=== PATIENT | male | born 1925 | race Caucasian/White ===

== ENCOUNTER 2016-06-05 14:19 | Inpatient (IN) ==
[2016-06-05] MEDS ORDERED: 0.9 % Sodium Chloride 1,000 ML IVC ONE ×2 (16:25→17:38)
--- NOTE | 2016-06-05 16:29 | Emergency Department Note ---
Addendum entered and electronically signed by Jacob Horton DO 06/05/16 18:25: EKG 06/05/2016 at 17:18. Normal sinus rhythm. Rate 84. NH interval 195. QRS 86. QTC 417. Normal axis. Some of the possible right lateral branch block. No acute ST elevation or depression. Original Note: Disposition Clinical Impression: Cholecystitis, Elevated LFTs, Ascending cholangitis Pancreatitis Qualifiers: Chronicity: acute Pancreatitis type: unspecified pancreatitis type Acute pancreatitis complication: unspecified Qualified Code(s): K85.90 - Acute pancreatitis without necrosis or infection, unspecified Disposition: Admitted As Inpatient Time of Disposition: 17:59 General Adult HPI - General Chief complaint: ED Recheck/Abnormal Lab/Rx Stated complaint: sent from CT Time Seen by Provider: 06/05/16 16:15 Source: patient Mode of arrival: ambulatory Limitations: no limitations Nursing Notes Reviewed: Yes Vital Signs Reviewed: Yes - History of Present Illness HPI Narrative: Patient is an 89-year-old male with past medical history of BPH, hypothyroidism , hypertension, CKD, osteoporosis. He presents today due to a referral from CT. Patient has been having epigastric and right upper quadrant burning for the past week. He states that it is intermittent day to day. Some days, it is associated with nausea and vomiting with food, some days it is not. Yesterday, he woke up with severe pain in the right upper quadrant and had nausea and vomiting with all meals. Today, he denies any pain but does admit to one episode of vomiting with food. He does not know of any fevers at home, denies any chest pain, shortness of breath. Patient had a CT scan today of the abdomen and pelvis that showed acute versus chronic cholecystitis, duodenitis, pancreatitis. He was sent here for further evaluation. Patient is not on any blood thinners. Currently takes aspirin daily. Pain Scale: 0 - Related Data Home Medications Medication Instructions Recorded Confirmed Amlodipine 2.5 mg PO DAILY 08/25/15 08/25/15 Enalapril Maleate [Vasotec] 40 mg PO DAILY 08/25/15 08/25/15 Levothyroxine [Synthroid] 150 mcg PO DAILY 08/25/15 08/25/15 Tamsulosin [Flomax] 0.4 mg PO DAILY 06/09/16 06/09/16 Previous Rx's Medication Instructions Recorded Aspirin 81 mg PO DAILY tab.chew 08/26/15 Melatonin 20 mg PO HS #60 tablet.er 08/26/15 Allergies Allergy/AdvReac Type Severity Reaction Status Date / Time No Known Allergies Allergy Verified 05/22/16 13:41 Constitutional: Denies: fever Eyes: Denies: eye pain ENT ED: Denies: ear pain Cardiovascular: Denies: chest pain, palpitations Respiratory: Denies: cough, dyspnea, wheezes, hemoptysis, stridor Gastrointestinal: Reports: abdominal pain, nausea, vomiting. Denies: diarrhea, constipation Genitourinary: Denies: urgency, dysuria, frequency Musculoskeletal: Denies: back pain, neck pain Integumentary: Denies: rash Neurological: Denies: headache Psychiatric: Denies: anxiety Past Medical History - Past Medical History Attestation: Yes The following information was validated with the patient. Medical history: Reports: arthritis, hypertension, osteoporosis, renal disease, thyroid disease, other Surgical history: Reports: other Psychiatric history: Reports: no psych history - Social History Smoking Status: Former smoker Smokeless Tobacco Status: No Alcohol use: Reports: none Drug use: Reports: none Physical Exam - General Limitations: no limitations General appearance: alert - Head Head exam: atraumatic, normocephalic, normal inspection - Eye Eye exam: Present: normal appearance, PERRL, EOMI - ENT ENT exam: normal exam, normal oropharynx, mucous membranes moist - Neck Neck exam: Present: normal inspection, full ROM, trachea midline - Chest Chest inspection: Present: normal inspection, symmetric chest wall rise - Respiratory Respiratory exam: Present: normal lung sounds bilaterally - Cardiovascular Cardiovascular exam: Present: regular rate, normal rhythm, normal heart sounds - Abdominal Exam Abdominal exam: Present: soft, tenderness (Right upper quadrant and epigastric region, moderate with palpation). Absent: guarding, rebound, rigidity - Extremities Exam Extremities exam: Present: normal inspection, full ROM. Absent: tenderness, pedal edema - Neurological Exam Neurological exam: Present: alert, oriented X3 - Psychiatric Psychiatric exam: Present: normal affect, normal mood - Skin Skin exam: Present: warm, dry, intact, normal color Course Course Narrative: Patient is febrile at 101. He is also mildly hypertensive. Otherwise, the rest of his vitals are within normal limits. Physical exam shows right upper quadrant and epigastric tenderness that is moderate in intensity. No guarding, rebound, rigidity on exam. CT scan from today shows significant gallbladder wall thickening with wall calcifications and adjacent fat induration which may represent acute versus chronic cholecystitis with moderate intrahepatic and mild extrahepatic biliary dilatation. There is also predominantly second third portion duodenal inflammation which may represent peptic ulcer disease without perforation or abscess. There is also mild pancreatic head inflammatory changes which may represent secondary pancreatitis. No pseudocyst or necrosis. Mild right pleural effusion with patchy lung base scarring with possible acute inflammatory infectious process. We will give Tylenol, obtain sepsis workup, abdominal labs, and then contact surgery for further care. 18:00 patient has elevated LFTs, elevated total bilirubin, elevated lipase greater than 1200. Current concern for cholecystitis, pancreatitis, ascending cholangitis. Patient was started on Zosyn, given Tylenol. Surgery was called, spoke with Dr. Tuttle, he requested that the patient be put on bowel rest for pancreatitis to calm down and then he will consider surgery. Discussed this with the hospitalist, accepted for admission. Vital Signs Temperature 101.0 F H 06/05/16 14:36 Pulse Rate 91 06/05/16 14:36 Respiratory Rate 16 06/05/16 14:36 Blood Pressure 150/79 06/05/16 14:36 O2 Sat by Pulse Oximetry 96 06/05/16 14:36 Temperature 101.0 F H 06/05/16 16:45 Pulse Rate 77 06/05/16 18:19 Respiratory Rate 18 06/05/16 18:19 Blood Pressure 116/67 06/05/16 18:19 O2 Sat by Pulse Oximetry 96 06/05/16 18:19 Oxygen Delivery Oxygen Delivery Room Air Medical Decision Making - [facility] Narrative Medical decision making narrative: Patient is febrile at 101. He is also mildly hypertensive. Otherwise, the rest of his vitals are within normal limits. Physical exam shows right upper quadrant and epigastric tenderness that is moderate in intensity. No guarding, rebound, rigidity on exam. CT scan from today shows significant gallbladder wall thickening with wall calcifications and adjacent fat induration which may represent acute versus chronic cholecystitis with moderate intrahepatic and mild extrahepatic biliary dilatation. There is also predominantly second third portion duodenal inflammation which may represent peptic ulcer disease without perforation or abscess. There is also mild pancreatic head inflammatory changes which may represent secondary pancreatitis. No pseudocyst or necrosis. Mild right pleural effusion with patchy lung base scarring with possible acute inflammatory infectious process. We will give Tylenol, obtain sepsis workup, abdominal labs, and then contact surgery for further care. 18:00 patient has elevated LFTs, elevated total bilirubin, elevated lipase greater than 1200. Current concern for cholecystitis, pancreatitis, ascending cholangitis. Patient was started on Zosyn, given Tylenol. Surgery was called, spoke with Dr. Tuttle, he requested that the patient be put on bowel rest for pancreatitis to calm down and then he will consider surgery. Discussed this with the hospitalist, accepted for admission. - Medical Records Medical records reviewed: Yes I reviewed the patient's medical records. - Lab Data Lab results reviewed: Yes I reviewed the patient's lab results. Result diagrams: 06/05/16 16:49 06/05/16 16:49 Lab Results 06/05/16 06/05/16 06/05/16 Range/Units 16:49 16:49 16:49 WBC 15.7 H (4.3-11.1) K/mcL RBC 3.43 L (4.19-5.50) M/mcL Hgb 10.9 L (12.9-16.9) g/dL Hct 32.0 L (37.5-50.1) % MCV 93.3 (83.0-100.0) fL MCH 31.8 (28.0-33.3) pg MCHC 34.1 (31.6-35.5) g/dL RDW 12.4 (11.5-14.5) % Plt Count 417 H (140-400) K/mcL MPV 9.2 L (9.4-12.4) fL Immature Gran % 0.7 (0-4) % Seg Neutrophils % 74.3 % Lymphocytes % 21.3 % Monocytes % 3.6 % Eosinophils % 0.0 % Basophils % 0.1 % Neutrophils # 11.7 H (1.6-8.9) K/mcL Lymphocytes # 3.3 (0.6-4.6) K/mcL Monocytes # 0.6 (0.0-1.3) K/mcL Eosinophils # 0.0 (0.0-0.6) K/mcL Basophils # 0.0 (0.0-0.2) K/mcL PT 17.6 H (9.4-12.1) Seconds INR 1.6 APTT 23.9 L (26.0-36.0) Seconds Sodium 134 L (136-145) mEq/L Potassium 4.5 (3.5-4.5) mEq/L Chloride 103 (98-109) mEq/L Carbon Dioxide 22 (19-29) mEq/L BUN 22 (8-26) mg/dL Creatinine 1.17 (0.72-1.25) mg/dL Est GFR ( Amer) > 60 (> 60) Est GFR (Non-Af Amer) 59 L (> 60) BUN/Creatinine Ratio 19 (6-26) Glucose 200 H (70-99) mg/dL Calculated Osmolality 287 (280-300) Lactic Acid (0.5-2.2) mmol/L Calcium 8.2 L (8.6-10.8) mg/dL Phosphorus 2.7 (2.3-4.7) mg/dL Magnesium 2.0 (1.6-2.6) mg/dL Total Bilirubin 3.1 H (0.2-1.2) mg/dL Direct Bilirubin 2.4 H (0.0-0.5) mg/dL Indirect Bilirubin 0.7 (0.0-1.2) mg/dL AST 464 H (5-34) Units/L ALT 458 H (0-55) Units/L Alkaline Phosphatase 344 H (38-126) Units/L Troponin I (0-0.03) ng/mL Serum Total Protein 6.7 (6.0-8.3) g/dL Albumin 2.8 L (3.5-5.0) g/dL Globulin 3.9 H (2.4-3.5) g/dL Albumin/Globulin Ratio 0.7 L (1.1-2.2) Lipase > 1200 H (8-78) Units/L Blood Type Antibody Screen 06/05/16 06/05/16 06/05/16 Range/Units 16:49 16:49 16:49 WBC (4.3-11.1) K/mcL RBC (4.19-5.50) M/mcL Hgb (12.9-16.9) g/dL Hct (37.5-50.1) % MCV (83.0-100.0) fL MCH (28.0-33.3) pg MCHC (31.6-35.5) g/dL RDW (11.5-14.5) % Plt Count (140-400) K/mcL MPV (9.4-12.4) fL Immature Gran % (0-4) % Seg Neutrophils % % Lymphocytes % % Monocytes % % Eosinophils % % Basophils % % Neutrophils # (1.6-8.9) K/mcL Lymphocytes # (0.6-4.6) K/mcL Monocytes # (0.0-1.3) K/mcL Eosinophils # (0.0-0.6) K/mcL Basophils # (0.0-0.2) K/mcL PT (9.4-12.1) Seconds INR APTT (26.0-36.0) Seconds Sodium (136-145) mEq/L Potassium (3.5-4.5) mEq/L Chloride (98-109) mEq/L Carbon Dioxide (19-29) mEq/L BUN (8-26) mg/dL Creatinine (0.72-1.25) mg/dL Est GFR ( Amer) (> 60) Est GFR (Non-Af Amer) (> 60) BUN/Creatinine Ratio (6-26) Glucose (70-99) mg/dL Calculated Osmolality (280-300) Lactic Acid 1.3 (0.5-2.2) mmol/L Calcium (8.6-10.8) mg/dL Phosphorus (2.3-4.7) mg/dL Magnesium (1.6-2.6) mg/dL Total Bilirubin (0.2-1.2) mg/dL Direct Bilirubin (0.0-0.5) mg/dL Indirect Bilirubin (0.0-1.2) mg/dL AST (5-34) Units/L ALT (0-55) Units/L Alkaline Phosphatase (38-126) Units/L Troponin I 0.07 H* (0-0.03) ng/mL Serum Total Protein (6.0-8.3) g/dL Albumin (3.5-5.0) g/dL Globulin (2.4-3.5) g/dL Albumin/Globulin Ratio (1.1-2.2) Lipase (8-78) Units/L Blood Type A POSITIVE Antibody Screen NEGATIVE - Radiology Data Radiology results reviewed: Yes I reviewed the patient's radiology results. S.B.A.R. - Rowdy Situation: Demographics, MOA Background: Presenting Complaint, Relevant PMH, Meds, & Allergies Assessment: Vital Signs, Course and respsone to treatment, Exam Concerns, Patient/Family Expectation, Pertinant Lab Results, Outstanding Labs Recommendation: Barrier(s) to disposition, Recommendation based on pending studies, treatments, or consults Rowdy Report Given to: Dr. Tay Reno Repor Time: 18:00 Attestation Statement - Attestation Attestation: I examined this patient and my medical decision-making was reviewed with the GAS PLANT DISPATCHER/PA/Advanced Practice Nurse/Resident Physician. I agree with the documented findings, disposition and treatment plan as described except to the extent set forth below. Patient presents to emergency department with a chief complaint of abdominal pain. Patient's been having intermittent right upper quadrant abdominal pain for the past several days. Some days if there is some days it is not. It was sent for an outpatient CT scan today showed a likely cholecystitis. He arrives here febrile. Soft abdomen with right upper quadrant tenderness with localized guarding. Plan. Patient's febrile with an elevated white blood cell count. Need sepsis criteria. Sepsis bundle was discussed with surgery. IV antibiotics being started at this time. Patient with elevated white count. Pancreatitis. Elevated LFTs as well. Admitted to medicine with surgical consult. IV antibiotics started in ED. 35 minutes of critical care exclusive of separately billable procedures.
[2016-06-05 17:01] LABS: Basophils % 0.1 %; Hemoglobin 10.9 g/dL (12.9-16.9); Immature Granulocytes % 0.7 % (0-4); Lymphocytes # 3.3 K/mcL (0.6-4.6); Lymphocytes % 21.3 %; Mean Corpuscular HGB Conc 34.1 g/dL (31.6-35.5); Mean Corpuscular Hemoglobin 31.8 pg (28.0-33.3); Mean Corpuscular Volume 93.3 fL (83.0-100.0); Mean Platelet Volume 9.2 fL (9.4-12.4); Monocytes # 0.6 K/mcL (0.0-1.3); Monocytes % 3.6 %; Neutrophils # 11.7 K/mcL (1.6-8.9); Platelet Count 417 K/mcL (140-400); Red Blood Count 3.43 M/mcL (4.19-5.50); Red Cell Distribution Width 12.4 % (11.5-14.5); Segmented Neutrophils % 74.3 %
[2016-06-05 17:07] LABS: INR 1.6; Prothrombin Time 17.6 Seconds (9.4-12.1)
[2016-06-05] MEDS ORDERED: Piperacillin/Tazobactam 3.375 GM in D5% in Water (Mini-Bag+) 100 ML IVPB ONE (17:08)
[2016-06-05 17:09] LABS: Activated Partial Thrombo Time 23.9 Seconds (26.0-36.0)
[2016-06-05 17:16] LABS: Alanine Aminotransferase 458 Units/L (0-55); Albumin 2.8 g/dL (3.5-5.0); Albumin/Globulin Ratio 0.7 (1.1-2.2); Alkaline Phosphatase 344 Units/L (38-126); Aspartate Amino Transferase 464 Units/L (5-34); BUN/Creatinine Ratio 19 (6-26); Bilirubin,Direct 2.4 mg/dL (0.0-0.5); Bilirubin,Indirect 0.7 mg/dL (0.0-1.2); Bilirubin,Total 3.1 mg/dL (0.2-1.2); Blood Urea Nitrogen 22 mg/dL (8-26); Calcium 8.2 mg/dL (8.6-10.8); Carbon Dioxide 22 mEq/L (19-29); Chloride 103 mEq/L (98-109); Globulin 3.9 g/dL (2.4-3.5); Glucose 200 mg/dL (70-99); Osmolality,Calculated 287 (280-300); Phosphorous 2.7 mg/dL (2.3-4.7); Potassium 4.5 mEq/L (3.5-4.5); Sodium 134 mEq/L (136-145); Total Protein 6.7 g/dL (6.0-8.3); eGFR For African Americans > 60 (> 60); eGFR For Non-African Americans 59 (> 60)
[2016-06-05 17:21] LABS: Lipase > 1200 Units/L (8-78)
--- NOTE | 2016-06-05 21:34 | Internal Med History&Physical ---
<KylahMone Ann - Last Filed: 06/06/16 06:46> Date of Encounter: 06/05/16 Time of Encounter: 21:14 Assessment and Plan (1) Cholecystitis Current visit: Yes Status: Acute currently asymptomatic CT scan evidence of cholecystitis, duodenitis, pancreatitis WBC 15.7 temp 101 Tbili: 3.1, direct:2.4 AST:464 ALT:458 AlkPhos:344 lipase>1200 zosyn abx pain control PPI blood ctx NPO supportive care (2) Pancreatitis Current visit: Yes Status: Acute lipase >1200 Qualifiers: Chronicity: acute Pancreatitis type: unspecified pancreatitis type Acute pancreatitis complication: unspecified Qualified Code(s): K85.90 - Acute pancreatitis without necrosis or infection, unspecified (3) Elevated LFTs Current visit: Yes Status: Acute AST: 464 ALT: 458 (4) Duodenitis Current visit: Yes Status: Acute (5) Anxiety Current visit: Yes Status: Acute (6) Anemia Current visit: No Status: Acute Hb 10.9/Hct 32 chronic Qualifiers: Anemia type: other cause Other causes of anemia: other cause, not classified Qualified Code(s): D64.89 - Other specified anemias (7) Hypothyroidism Current visit: No Status: Chronic Qualifiers: Hypothyroidism type: acquired Qualified Code(s): E03.9 - Hypothyroidism, unspecified (8) Hypertension Current visit: No Status: Chronic Qualifiers: Hypertension type: essential hypertension Qualified Code(s): I10 - Essential (primary) hypertension (9) 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 Rainey is a 89 year old male with c/o abdominal pain. PMHx of HTN,RBBB, vasovagal syncope, anxiety, CKD, hypothyroid, BPH. Presents c/o 8/10 abdominal pain, fever, chills, nausea and decreased appetite. He states this stated about a week ago and is intermittent throughout the day, lasting a few minutes to 30-40min usually worse in the morning. Pain is made worse with any type of movement pain is localized to RUQ. Not improved by anything, besides subsiding on its own. Pt states taking anything PO and even thing about eating anything makes him nauseated. He states he has also had some constipation alternating with non-bloody diarrhea. While in ER pt was started on zosyn, which he states has seemed to relieve his pain. Pt states he recently had a fall about 2 weeks ago, he is not on bloodthinners and states he had a work up at that time. Pt denies headache, change in vision, recent trauma to head, CP, SOB, numbness/ tingling. Past Med Surg Social Fam HX - Past Medical History Medical history: arthritis, hypertension, osteoporosis, renal disease, thyroid disease, syncope, other (RBBB) Psychiatric history: anxiety - Past Surgical History Surgical History: other - Social History Smoking Status: Former smoker Smokeless Tobacco Status: No Alcohol use: none Drug use: none Occupational status: retired Current living situation: Home Activity Level: Uses cane/walker Recent Out of Country Travel Within the Last 8 Weeks: No - Family History Brother Hx Family Cardiac Disorders: Yes ([place]) Mother Living Status: Hx Family Cardiac Disorders: No Hx Family Respiratory Disorders: No Hx Family Cancer: No Hx Family GI Disorders: Yes Hx Family Genitourinary Disorders: No Hx Family Endocrine Disorder: No Hx Family Musculoskeletal Disorders: No Hx Family Neuromuscular Disorders: No Hx Family Neurologic Disorders: No Hx Family HEENT Disorders: Yes (THROAT CANCER.) Internal Medicine - H&P: Meds Amlodipine Besylate 2.5 mg PO DAILY #0 08/25/15 [History] Enalapril Maleate [Vasotec] 40 mg PO DAILY 08/25/15 [History] Levothyroxine [Synthroid] 150 mcg PO QAM 08/25/15 [History] Tamsulosin [Flomax] 0.4 mg PO DAILY 08/25/15 [History] Aspirin 81 mg PO DAILY tab.chew 08/26/15 [Rx] Melatonin 6 mg PO HS 06/05/16 [History] Temazepam [Restoril] 22.5 mg PO HS PRN 06/05/16 [History] Allergies No Known Allergies Allergy (Verified 05/22/16 13:41) All Systems PM: A 10-system review of systems was performed and is negative for pertinent findings except as documented above in the HPI. - Constitutional Constitutional: anorexia, chills, fatigue, fever(s), falls, no night sweats - EENT Eyes: no change in vision, no other visual disturbances - Cardiovascular Cardiovascular ROS IM: no chest pain, no diaphoresis, no dyspnea, no lightheadedness, no palpitations, no syncope - Respiratory Respiratory: no cough, no dyspnea, no wheezing, no excessive phlegm production - Gastrointestinal Gastrointestinal: abdominal pain, change in bowel habits, constipation, diarrhea , loose stools, nausea, no coffee ground emesis, no hematemesis, no hematochezia , no melena, no vomiting - Genitourinary Genitourinary ROS male: no difficulty urinating, no dysuria, no flank pain - Musculoskeletal Musculoskeletal ROS IM: no numbness, no tingling - Integumentary Integumentary IM: no rash - Neurological Neurological ROS: frequent falls, no dizziness, no headache(s), no loss of vision, no numbness, no tingling - Psychiatric Psychiatric: anxiety, panic attacks - Constitutional Vitals: Temp Pulse Resp BP Pulse Ox 98.2 F 94 16 100/56 94 L 06/05/16 20:13 06/05/16 20:13 06/05/16 20:13 06/05/16 20:13 06/05/16 20:13 General appearance: Present: A&O X 3, pleasant, answers questions appropriately - Head Head exam: Present: atraumatic, normocephalic - Eye Eye exam: Present: EOMI, PERRL, conjuntiva pink, sclera anicteric - ENT ENT exam: Present: mucous membranes dry - Neck Neck exam general surgery: Present: full ROM, trachea midline. Absent: tenderness - Respiratory Respiratory exam: Present: CTAB. Absent: accessory muscle use, rales, rhonchi, wheezes - Cardiovascular Cardiovascular exam: Present: RRR, +S1, +S2. Absent: diastolic murmur, gallop, rubs, systolic murmur - GI/Abdominal GI/Abdominal exam: Present: normal bowel sounds, tenderness (mild RUQ), no peritoneal signs. Absent: guarding, rebound, rigid - Extremities Exam Extremities exam: Present: normal capillary refill, radial pulses palpable and symetrical. Absent: calf tenderness, cyanotic, mottling, pedal edema, tenderness - Expanded Upper Extremities Exam General: Present: abrasion Upper Arm exam: Present: abrasion (L upper arm and forearm), ecchymosis Neurosensory exam: Present: median nerve intact, radial nerve intact, ulnar nerve intact Vascular exam: Present: radial pulse right, radial pulse left - Back Exam Back exam: Absent: CVA tenderness (L), CVA tenderness (R) - Neurological Exam Neurological exam: Present: CN II-XII intact, oriented X3. Absent: no focal deficits, facial droop, speech deficit - Psychiatric Psychiatric exam: Present: normal affect, normal mood - Skin Skin exam: Present: abrasion (L UE) Internal Med - H&P Results - Labs CBC & Chem 7: 06/05/16 16:49 06/05/16 16:49 <Ivanna Mahoney - Last Filed: 06/07/16 01:24> Internal Medicine - H&P: HPI History of present illness: Mr. Rainey is a 89 year old male All Systems PM: A 10-system review of systems was performed and is negative for pertinent findings except as documented above in the HPI. - Constitutional Vitals: Temp Pulse Resp BP Pulse Ox 97.5 F L 68 15 121/69 95 06/06/16 07:52 06/06/16 07:52 06/06/16 07:52 06/06/16 07:52 06/06/16 07:52 Internal Med - H&P Results - Labs CBC & Chem 7: 06/06/16 06:15 06/06/16 06:15 Labs: Short CBC 06/06/16 Range/Units 06:15 WBC 9.3 (4.3-11.1) K/mcL Hgb 8.7 L D (12.9-16.9) g/dL Hct 26.0 L (37.5-50.1) % Plt Count 339 (140-400) K/mcL Neutrophils # 5.7 (1.6-8.9) K/mcL BMP 06/06/16 06:15 Sodium 138 Potassium 3.9 Chloride 107 Carbon Dioxide 25 BUN 21 Creatinine 1.12 Glucose 84 Calcium 7.7 L Cardiac Enzymes 06/06/16 Range/Units 06:15 Troponin I 0.04 H* (0-0.03) ng/mL Liver Function 03/22/17 Range/Units 06:15 Total Bilirubin 4.3 H (0.2-1.2) mg/dL Direct Bilirubin 3.5 H D (0.0-0.5) mg/dL AST 218 H (5-34) Units/L ALT 305 H (0-55) Units/L Alkaline Phosphatase 258 H (38-126) Units/L Albumin 2.3 L (3.5-5.0) g/dL - Attending Attestation I performed a history and physical examination of the patient and discussed his management with the Resident/Stove Installer. I reviewed the residents note and agree with the documented findings and plan of care, with additions as below. 89 Y/M with epigastric and right upper quadrant abdominal pain. O/E: RUQ tenderness present. BS +. Imaging showed gallbladder wall thickening, duodenal inflammation; pancreatic inflammation. Lipase >1200. Suspect cholecystitis and gall stone pancreatitis. A/P: Zosy; surgical consult; IV fluids; PPI; MRCP; lipid panel.
[2016-06-05] MEDS ORDERED: *HR* Promethazine 25 MG/ML VIAL IVP PRN (21:58)
[2016-06-05] MEDS: Pantoprazole 40 MG VIAL IVP SCH (22:51)
[2016-06-05] MEDS ORDERED: *HR* Morphine 2 MG/ML SYRINGE IVP PRN (22:54)
[2016-06-05] MEDS ORDERED: 0.9 % Sodium Chloride 1,000 ML IVC SCH (23:00)
[2016-06-05 23:15] LABS: Chol/HDL Ratio 2.9 (0-4.9)
[2016-06-05] MEDS: Piperacillin/Tazobactam 3.375 GM in D5% in Water (Mini-Bag+) 100 ML IVPB SCH (23:37)
[2016-06-06 06:52] LABS: Basophils % 0.2 %; Eosinophils # 0.1 K/mcL (0.0-0.6); Immature Granulocytes % 0.3 % (0-4); Lymphocytes # 2.8 K/mcL (0.6-4.6); Lymphocytes % 30.4 %; Mean Corpuscular HGB Conc 33.5 g/dL (31.6-35.5); Mean Corpuscular Hemoglobin 31.9 pg (28.0-33.3); Mean Corpuscular Volume 95.2 fL (83.0-100.0); Mean Platelet Volume 9.5 fL (9.4-12.4); Monocytes # 0.7 K/mcL (0.0-1.3); Monocytes % 7.2 %; Neutrophils # 5.7 K/mcL (1.6-8.9); Platelet Count 339 K/mcL (140-400); Red Blood Count 2.73 M/mcL (4.19-5.50); Red Cell Distribution Width 12.6 % (11.5-14.5); Segmented Neutrophils % 60.9 %
[2016-06-06 07:05] LABS: Alanine Aminotransferase 305 Units/L (0-55); Albumin 2.3 g/dL (3.5-5.0); Albumin/Globulin Ratio 0.7 (1.1-2.2); Alkaline Phosphatase 258 Units/L (38-126); Aspartate Amino Transferase 218 Units/L (5-34); BUN/Creatinine Ratio 19 (6-26); Bilirubin,Indirect 0.8 mg/dL (0.0-1.2); Bilirubin,Total 4.3 mg/dL (0.2-1.2); Blood Urea Nitrogen 21 mg/dL (8-26); Calcium 7.7 mg/dL (8.6-10.8); Carbon Dioxide 25 mEq/L (19-29); Chloride 107 mEq/L (98-109); Globulin 3.3 g/dL (2.4-3.5); Glucose 84 mg/dL (70-99); Hemoglobin 8.7 g/dL (12.9-16.9); Lipase 830 Units/L (8-78); Osmolality,Calculated 288 (280-300); Potassium 3.9 mEq/L (3.5-4.5); Sodium 138 mEq/L (136-145); Total Protein 5.6 g/dL (6.0-8.3); eGFR For African Americans > 60 (> 60); eGFR For Non-African Americans > 60 (> 60)
[2016-06-06 07:06] LABS: Bilirubin,Direct 3.5 mg/dL (0.0-0.5)
[2016-06-06] MEDS: Piperacillin/Tazobactam 3.375 GM in D5% in Water (Mini-Bag+) 100 ML IVPB SCH ×2 (07:59→16:14)
[2016-06-06] MEDS: Pantoprazole 40 MG VIAL IVP SCH (07:59)
[2016-06-06] MEDS ORDERED: 0.9 % Sodium Chloride 1,000 ML IVC SCH (11:31)
[2016-06-06] MEDS ORDERED: Ondansetron 4 MG/2 ML VIAL IVP PRN (11:31)
--- NOTE | 2016-06-06 13:00 | Internal Med Progress Note ---
<Mandy Henriquez - Last Filed: 06/06/16 17:11> Date of Encounter: 06/06/16 Time of Encounter: 10:30 - Assessment and plan (1) Sepsis Current Visit: Yes Status: Acute Assessment and plan: - 3 SIRS criteria (fever, tachycardia and leukocytosis) on admission with cholecystitis as most likely source of infection. - Clinically improves with temperature, heart rate and WBC normalized. - Continue Zosyn and IV fluid. Qualifiers: Sepsis type: sepsis due to unspecified organism Qualified Code(s): A41.9 - Sepsis, unspecified organism (2) Cholecystitis Current Visit: Yes Status: Chronic Assessment and plan: - With RUQ abdominal pain, fever, chills and nausea on initial presentation. - CT A/P found significant gallbladder wall thickening with wall calcification & mild fat induration suggestive of acute vs. chronic cholecystitis with moderate intrahepatic & mild extrahepatic biliary dilatation. - Elevated LFTs consisted with picture of biliary obstruction from gallstones. - Clinically improves with AST, ALT and Alk phos decreased. But elevated bilirubin may suggest still having some obstruction. - MRCP found cholelithiasis and suspected tumefactive biliary sludge with findings suggestive of cholecystitis. It also showed a focal narrowing of the common hepatic duct just proximal to the confluence at the cystic duct with edematous wall thickening of the extrahepatic ducts. Those findings could be from cholangitis or cholangiocarcinoma and ERCP is recommended. - Appreciate GI consult for ERCP. - Continue IV NS 100 cc/hr and Zosyn. - Continue NPO. - Appreciate surgery recommendations regarding potential cholecystectomy, which likely will happen after patient's current pancreatitis improves. (3) Pancreatitis Current Visit: Yes Status: Acute Assessment and plan: - Elevated lipase (>1,200) with mild pancreatic head inflammatory changes as seen on CT A/P. - Likely secondary to gallstone. - BISAP score of 3 (> 2 SIRS criteria, age > 60 and pleural effusion) suggests significant mortality risk. - Clinically improves with lipase decreased to 830. - Continue IV fluid, pain control and NPO. Qualifiers: Chronicity: acute Pancreatitis type: unspecified pancreatitis type Acute pancreatitis complication: unspecified Qualified Code(s): K85.90 - Acute pancreatitis without necrosis or infection, unspecified (4) Duodenitis Current Visit: Yes Status: Acute Assessment and plan: - CT A/P showed 2nd & 3rd portion duodenal inflammation that may be associated with peptic ulcer disease. - Continue Protonix. (5) Elevated troponin Current Visit: Yes Status: Acute Assessment and plan: - Troponin elevated at 0.07 on admission but later trended down to 0.04. - No significant ischemic change on EKG. - Last echo in August 2015 showed LVEF 60-65% with mild LV diastolic dysfunction. - Will obtain echocardiogram for further evaluation, especially patient likely needs cholecystectomy. (6) Anemia Current Visit: No Status: Acute Assessment and plan: - Hgb 8.7 today. Likely dilutional on top of chronic anemia (baseline 11). - Continue to monitor. Qualifiers: Anemia type: other cause Other causes of anemia: other cause, not classified Qualified Code(s): D64.89 - Other specified anemias (7) Hypertension Current Visit: No Status: Chronic Assessment and plan: - Blood pressure in low normal since admission without any antihypertensive medication. - Hold his home antihypertensive regimen for now. Qualifiers: Hypertension type: essential hypertension Qualified Code(s): I10 - Essential (primary) hypertension (8) DVT prophylaxis Current Visit: Yes Status: Acute Assessment and plan: - SCD as mechanical DVT prophylaxis. - Subjective Interval history: Patient was seen and examined this morning. Patient reports abdominal pain resolved and denies fever, chills, nausea, vomiting, diarrhea, chest pain, shortness of breath. - Constitutional Vitals: Temp Pulse Resp BP Pulse Ox 97.5 F L 68 15 121/69 95 06/06/16 07:52 06/06/16 07:52 06/06/16 07:52 06/06/16 07:52 06/06/16 07:52 General appearance: Present: cooperative, A&O X 3, pleasant, no acute distress, answers questions appropriately - Head Head exam: Present: atraumatic, normocephalic - Eye Eye exam: Present: PERRL, conjuntiva pink, sclera anicteric - Neck Neck exam general surgery: Present: supple, trachea midline. Absent: lymphadenopathy - Respiratory Respiratory exam: Present: CTAB. Absent: accessory muscle use, rales, rhonchi, wheezes - Cardiovascular Cardiovascular exam: Present: RRR, +S1, +S2. Absent: diastolic murmur, gallop, rubs, systolic murmur - GI/Abdominal GI/Abdominal exam: Present: normal bowel sounds, soft, no peritoneal signs. Absent: distended, tenderness - Extremities Exam Extremities exam: Present: warm, radial pulses palpable and symetrical. Absent : calf tenderness, cyanotic, pedal edema - Neurological Exam Neurological exam: Present: CN II-XII intact, oriented X3, no focal deficits. Absent: pronater drift, facial droop, speech deficit - Skin Skin exam: Present: dry Additional comments: Left upper extremity abrasions/wounds from prior fall noted. Internal Medicine: Result - Labs CBC & Chem 7: 06/06/16 06:15 06/06/16 06:15 Labs: Short CBC 06/06/16 Range/Units 06:15 WBC 9.3 (4.3-11.1) K/mcL Hgb 8.7 L D (12.9-16.9) g/dL Hct 26.0 L (37.5-50.1) % Plt Count 339 (140-400) K/mcL Neutrophils # 5.7 (1.6-8.9) K/mcL BMP 06/06/16 06:15 Sodium 138 Potassium 3.9 Chloride 107 Carbon Dioxide 25 BUN 21 Creatinine 1.12 Glucose 84 Calcium 7.7 L Cardiac Enzymes 06/06/16 Range/Units 06:15 Troponin I 0.04 H* (0-0.03) ng/mL Liver Function 06/06/16 Range/Units 06:15 Total Bilirubin 4.3 H (0.2-1.2) mg/dL Direct Bilirubin 3.5 H D (0.0-0.5) mg/dL AST 218 H (5-34) Units/L ALT 305 H (0-55) Units/L Alkaline Phosphatase 258 H (38-126) Units/L Albumin 2.3 L (3.5-5.0) g/dL - ABG Interpretation ABG results: PT/INR, D-dimer PT 17.6 Seconds (9.4-12.1) H 06/05/16 16:49 Consult Discharge Plan - Plan Referrals: Ines Turner, DELIVERY ROOM SUPERVISOR [Primary Care Provider] - <Lexis Guan - Last Filed: 06/06/16 17:35> - Constitutional Vitals: Temp Pulse Resp BP Pulse Ox 97.3 F L 68 19 143/65 95 06/06/16 15:40 06/06/16 07:52 06/06/16 15:40 06/06/16 15:40 06/06/16 07:52 Internal Medicine: Result - Labs CBC & Chem 7: 06/06/16 06:15 06/06/16 06:15 Labs: Short CBC 06/06/16 Range/Units 06:15 WBC 9.3 (4.3-11.1) K/mcL Hgb 8.7 L D (12.9-16.9) g/dL Hct 26.0 L (37.5-50.1) % Plt Count 339 (140-400) K/mcL Neutrophils # 5.7 (1.6-8.9) K/mcL BMP 06/06/16 06:15 Sodium 138 Potassium 3.9 Chloride 107 Carbon Dioxide 25 BUN 21 Creatinine 1.12 Glucose 84 Calcium 7.7 L Cardiac Enzymes 06/06/16 Range/Units 06:15 Troponin I 0.04 H* (0-0.03) ng/mL Liver Function 06/06/16 Range/Units 06:15 Total Bilirubin 4.3 H (0.2-1.2) mg/dL Direct Bilirubin 3.5 H D (0.0-0.5) mg/dL AST 218 H (5-34) Units/L ALT 305 H (0-55) Units/L Alkaline Phosphatase 258 H (38-126) Units/L Albumin 2.3 L (3.5-5.0) g/dL Urine 06/06/16 Range/Units 15:33 Urine Color Dark Yellow (Yellow) Urine Clarity Slightly Hazy (Clear) Urine pH 6.5 (5.0-8.0) pH Units Ur Specific [place] 1.022 (1.010-1.025) Urine Protein Trace (Neg-Trace) mg/dL Urine Glucose (UA) Normal (Normal) mg/dL - ABG Interpretation ABG results: PT/INR, D-dimer PT 17.6 Seconds (9.4-12.1) H 06/05/16 16:49 - Impressions Impressions Abdomen MRI 06/06/16 09:18 IMPRESSION: 1. Cholelithiasis and suspected tumefactive biliary sludge with findings suggestive of cholecystitis. 2. No definite findings of choledocholithiasis or biliary obstruction. However, there is focal narrowing of the common hepatic duct just proximal to the confluence with the cystic duct. Additionally, there may be edematous wall thickening of the extrahepatic ducts in addition to mild periportal edema. These findings could be related to cholangitis or cholangiocarcinoma. Consider further characterization with ERCP or liver protocol MRI. 3. No definite findings of pancreatitis or duodenitis on this examination. 4. Increased trace bilateral effusions and trace ascites, likely reactive. D/ / Neto Cabrera MD / Neto Cabrera MD Interpreting Provider: Neto Cabrera MD Abdomen Ultrasound 06/06/16 14:30 IMPRESSION: As was seen at CT, Gallbladder wall is thickened and there is stones and sludge within the gallbladder lumen. Cholecystitis not excluded based on these findings although the common bile duct is appropriate for age. Incidental right pleural effusion. D/ / Lincoln Foreman MD / Lincoln Foreman MD Interpreting Provider: Lincoln Foreman MD - Attending Attestation I examined this patient and reviewed laboratory, imaging and all diagnostic data. My medical decision-making was reviewed with Dr Henriquez - Resident Physician. I agree with the documented findings, disposition and treatment plan as described above.
--- NOTE | 2016-06-06 15:33 | Electrocardiograph Report ---
[place] [id number] Test Date: 2016-06-05 Pat Name: Camilo Rainey Department: 105 Room: 3A23 Gender: M Test Skein Winder: GISELLE : 1925 Requested By: Suellen See Order Number: [id number] Reading MD: Yosef Tilley MD Measurements Intervals [place] Rate: 84 P: 56 FL: 195 QRS: 36 QRSD: 86 T: 46 QT: 376 QTc: 417 Interpretive Statements SINUS RHYTHM RBBB Electronically Signed On 06-06-2016 15:32:22 EDT by Yosef Tilley MD
[2016-06-06 15:43] LABS: Bilirubin,Urine Moderate (Negative); Blood,Urine Negative (Negative); Color,Urine Dark Yellow (Yellow); Glucose,Urine (UA) Normal (Normal); Ketones,Urine Negative (Negative); Leukocyte Esterase,Urine Negative (Negative); Nitrite,Urine Negative (Negative); PH,Urine 6.5 pH Units (5.0-8.0); Protein,Urine Trace mg/dL (Neg-Trace); Specific Gravity,Urine 1.022 (1.010-1.025)
[2016-06-06 15:47] LABS: Hyaline Casts,Urine None Seen per lpf (None-Few); RBC,Urine 0-3 per hpf (0-3); Squamous Epithelial Cell,Urine Many per lpf (None-Few)
[2016-06-06 15:50] LABS: Clarity,Urine Slightly Hazy (Clear)
[2016-06-06 15:59] LABS: Bacteria,Urine Moderate per hpf (None-Few)
--- NOTE | 2016-06-06 16:00 | General Surgery Consult Note ---
Date of Encounter: 06/06/16 Time of Encounter: 15:30 Assessment and Plan (1) Cholelithiasis Current Visit: Yes Status: Acute May have clear liquids NPO after midnight MRI abnormal- discussed with Dr. Bonilla and he will evaluate for possible ERCP Supportive care/pain control Repeat labs Will consider cholecystectomy if indicated after evaluted by Dr. Bonilla Qualifiers: Cholelithiasis location: gallbladder Cholecystitis presence: with cholecystitis Cholecystitis acuity: unspecified acuity Biliary obstruction: with biliary obstruction Qualified Code(s): K80.01 - Calculus of gallbladder with acute cholecystitis with obstruction (2) Cholecystitis Current Visit: Yes Status: Chronic IV antibiotics- Zosyn WBC normalized today- 15.7>9.3 May have clear liquids NPO after midnight MRI abnormal- discussed with Dr. Bonilla and he will evaluate for possible ERCP Supportive care/pain control Repeat labs Will consider cholecystectomy if indicated after evaluted by Dr. Bonilla (3) Elevated LFTs Current Visit: Yes Status: Acute TB- 4.3 DB- 3.5 IB- 0.8 MRI abnormal Consults with Gastroenterology Repeat am labs History of Present Illness Consult date: 06/06/16 Reason for consult: abdominal pain Requesting physician: Mandy Henriquez History of present illness: Mr. Rainey is a very pleasant 89 year old male with a past medical history significant for HLD, Hypothyroidism, HTN, arthritis. He presents to the ED with complaints of a 2-3 week history of intermittent abdominal discomfort. He states that the pain is located across his upper abdomen. He can not appreciate an aggrevating or alleviating factors. The pain is described as a stabbing/ burning sensation. He states that he typically wakes up with the pain. The episodes have been happening more frequently and seem to be more intense. He states that he feels that they started after he fell 3 weeks ago. Denies any nausea/vomiting or changes in appetite. Denies any changes in bowel habits. Denies any diarrhea, constipation, melena or hematochezia. Denies any fevers or chills. Denies any shortness of breath or chest pains. Denies any difficulty with urination. He states that he has not had any abdominal pain since arrival to the hospital. He has had abnormal imaging suggestive of cholelithiasis, cholecystitis. He also has abnormal labs including an elevated bilirubin. We have been asked to see and evaluate the patient for recommendations from a surgical standpoint. Past Med Surg Social Fam HX - Past Medical History Source: patient, old records reviewed Medical history: arthritis, hyperlipidemia, hypertension, osteoporosis, renal disease, thyroid disease, syncope, other (RBBB) Psychiatric history: anxiety - Past Surgical History Surgical History: cataract, knee replacement (left), other (skin cancer removal , trigger finger release, TURP, colonoscopy) - Social History Smoking Status: Former smoker Smokeless Tobacco Status: No Alcohol use: none Drug use: none Occupational status: retired Current living situation: Home - Independent Activity Level: Independent ambulation - Family History Brother Hx Family Cardiac Disorders: Yes (MA) Mother Living Status: Hx Family Cardiac Disorders: No Hx Family Respiratory Disorders: No Hx Family Cancer: No Hx Family GI Disorders: Yes Hx Family Genitourinary Disorders: No Hx Family Endocrine Disorder: No Hx Family Musculoskeletal Disorders: No Hx Family Neuromuscular Disorders: No Hx Family Neurologic Disorders: No Hx Family HEENT Disorders: Yes (THROAT CANCER.) Medications and Allergies Amlodipine Besylate 2.5 mg PO DAILY #0 08/25/15 [History] Enalapril Maleate [Vasotec] 40 mg PO DAILY 08/25/15 [History] Levothyroxine [Synthroid] 150 mcg PO QAM 08/25/15 [History] Tamsulosin [Flomax] 0.4 mg PO DAILY 08/25/15 [History] Aspirin 81 mg PO DAILY tab.chew 08/26/15 [Rx] Melatonin 6 mg PO HS 06/05/16 [History] Temazepam [Restoril] 22.5 mg PO HS PRN 06/05/16 [History] Allergies No Known Allergies Allergy (Verified 05/22/16 13:41) Review of Systems All systems PM: reviewed and no additional remarkable complaints except as stated (in the HPI) All systems PM: A 10-system review of systems was performed and is negative for pertinent findings except as documented above in the HPI. General Surgery Exam Initial Vital Signs Temp Pulse Resp BP Pulse Ox 101.0 F H 91 16 150/79 96 06/05/16 14:36 06/05/16 14:36 06/05/16 14:36 06/05/16 14:36 06/05/16 14:36 - General physical appearance well developed, well nourished, no distress, no pain - Eyes PERRL, normal ocular movement - ENT normal mucosa, atraumatic, normocephalic - Neck trachea midline - Respiratory normal expansion, normal respiratory effort, clear to auscultation - Cardiovascular Cardiovascular exam: Present: RRR - Abdomen Abdomen general surgery: Present: bowel sounds present, soft, non tender - Integumentary Integumentary general surgery: Present: warm and dry, other (Abrasions to LUE healing well) - Neurologic Present: CN 2-12 grossly intact - Musculoskeletal Present: normal gait, normal posture - Psychiatric Psychiatric general surgery: Present: appropriate, oriented to person, oriented to place, oriented to time, speech is normal, memory intact Exam Initial Vital Signs Temp Pulse Resp BP Pulse Ox 101.0 F H 91 16 150/79 96 06/05/16 14:36 06/05/16 14:36 06/05/16 14:36 06/05/16 14:36 06/05/16 14:36 Results - Labs 06/06/16 06:15 06/06/16 06:15 Abnormal lab results RBC 2.73 M/mcL (4.19-5.50) L 06/06/16 06:15 Hgb 8.7 g/dL (12.9-16.9) L D 06/06/16 06:15 Hct 26.0 % (37.5-50.1) L 06/06/16 06:15 PT 17.6 Seconds (9.4-12.1) H 06/05/16 16:49 APTT 23.9 Seconds (26.0-36.0) L 06/05/16 16:49 Calcium 7.7 mg/dL (8.6-10.8) L 06/06/16 06:15 Total Bilirubin 4.3 mg/dL (0.2-1.2) H 06/06/16 06:15 Direct Bilirubin 3.5 mg/dL (0.0-0.5) H D 06/06/16 06:15 AST 218 Units/L (5-34) H 06/06/16 06:15 ALT 305 Units/L (0-55) H 06/06/16 06:15 Alkaline Phosphatase 258 Units/L (38-126) H 06/06/16 06:15 Troponin I 0.04 ng/mL (0-0.03) H* 06/06/16 06:15 Serum Total Protein 5.6 g/dL (6.0-8.3) L 06/06/16 06:15 Albumin 2.3 g/dL (3.5-5.0) L 06/06/16 06:15 Albumin/Globulin Ratio 0.7 (1.1-2.2) L 06/06/16 06:15 Lipase 830 Units/L (8-78) H 06/06/16 06:15 Urine Bilirubin Moderate (Negative) H 06/06/16 15:33 Urine Urobilinogen 2.0 mg/dL (Normal) H 06/06/16 15:33 Diabetes panel 06/06/16 Range/Units 06:15 Sodium 138 (136-145) mEq/L Potassium 3.9 (3.5-4.5) mEq/L Chloride 107 (98-109) mEq/L Carbon Dioxide 25 (19-29) mEq/L BUN 21 (8-26) mg/dL Creatinine 1.12 (0.72-1.25) mg/dL Glucose 84 (70-99) mg/dL Calcium 7.7 L (8.6-10.8) mg/dL AST 218 H (5-34) Units/L ALT 305 H (0-55) Units/L Alkaline Phosphatase 258 H (38-126) Units/L Albumin 2.3 L (3.5-5.0) g/dL Calcium panel 06/06/16 Range/Units 06:15 Calcium 7.7 L (8.6-10.8) mg/dL Albumin 2.3 L (3.5-5.0) g/dL Pituitary panel 06/06/16 Range/Units 06:15 Sodium 138 (136-145) mEq/L Potassium 3.9 (3.5-4.5) mEq/L Chloride 107 (98-109) mEq/L Carbon Dioxide 25 (19-29) mEq/L BUN 21 (8-26) mg/dL Creatinine 1.12 (0.72-1.25) mg/dL Glucose 84 (70-99) mg/dL Calcium 7.7 L (8.6-10.8) mg/dL Adrenal panel 06/06/16 Range/Units 06:15 Sodium 138 (136-145) mEq/L Potassium 3.9 (3.5-4.5) mEq/L Chloride 107 (98-109) mEq/L Carbon Dioxide 25 (19-29) mEq/L BUN 21 (8-26) mg/dL Creatinine 1.12 (0.72-1.25) mg/dL Glucose 84 (70-99) mg/dL Calcium 7.7 L (8.6-10.8) mg/dL Total Bilirubin 4.3 H (0.2-1.2) mg/dL AST 218 H (5-34) Units/L ALT 305 H (0-55) Units/L Alkaline Phosphatase 258 H (38-126) Units/L Albumin 2.3 L (3.5-5.0) g/dL All other labs normal. - Imaging Additional studies: Chest X-Ray 06/05/16 22:54 IMPRESSION: No acute cardiopulmonary abnormality. D/ / Dipesh Regan MD / Dipesh Regan MD Interpreting Provider: Dipesh Regan MD Abdomen MRI 06/06/16 09:18 IMPRESSION: 1. Cholelithiasis and suspected tumefactive biliary sludge with findings suggestive of cholecystitis. 2. No definite findings of choledocholithiasis or biliary obstruction. However, there is focal narrowing of the common hepatic duct just proximal to the confluence with the cystic duct. Additionally, there may be edematous wall thickening of the extrahepatic ducts in addition to mild periportal edema. These findings could be related to cholangitis or cholangiocarcinoma. Consider further characterization with ERCP or liver protocol MRI. 3. No definite findings of pancreatitis or duodenitis on this examination. 4. Increased trace bilateral effusions and trace ascites, likely reactive. D/ / Neto Cabrera MD / Neto Cabrera MD Interpreting Provider: Neto Cabrera MD Abdomen Ultrasound 06/06/16 14:30 IMPRESSION: As was seen at CT, Gallbladder wall is thickened and there is stones and sludge within the gallbladder lumen. Cholecystitis not excluded based on these findings although the common bile duct is appropriate for age. Incidental right pleural effusion. D/ / Lincoln Foreman MD / Lincoln Foreman MD Interpreting Provider: Lincoln Foreman MD Consult Discharge Plan - Plan Referrals: Ines Turner, MORTGAGE PROCESSING CLERK [Primary Care Provider] - - Attending Attestation I examined this patient and my medical decision-making was reviewed with the PARQUETRY FLOOR LAYER/PA/Advanced Practice Nurse/Resident Physician. I agree with the documented findings, disposition and treatment plan as described except to the extent set forth below.
[2016-06-07] MEDS: Piperacillin/Tazobactam 3.375 GM in D5% in Water (Mini-Bag+) 100 ML IVPB SCH ×3 (00:17→18:47)
[2016-06-07] MEDS ORDERED: Dextrose Gel 15 GM PO PRN ×2 (01:19)
[2016-06-07] MEDS ORDERED: *HR* Dextrose 50 % in Water (Syg) 50 ML SYRINGE IVP PRN (01:19)
[2016-06-07 05:19] LABS: INR 1.5; Prothrombin Time 16.8 Seconds (9.4-12.1)
[2016-06-07 05:25] LABS: Basophils % 0.4 %; Eosinophils # 0.2 K/mcL (0.0-0.6); Eosinophils % 2.2 %; Hematocrit 26.4 % (37.5-50.1); Immature Granulocytes % 0.2 % (0-4); Lymphocytes % 36.2 %; Mean Corpuscular HGB Conc 34.1 g/dL (31.6-35.5); Mean Platelet Volume 9.5 fL (9.4-12.4); Monocytes # 0.5 K/mcL (0.0-1.3); Monocytes % 6.4 %; Neutrophils # 4.5 K/mcL (1.6-8.9); Platelet Count 361 K/mcL (140-400); Red Blood Count 2.81 M/mcL (4.19-5.50); Red Cell Distribution Width 12.5 % (11.5-14.5); Segmented Neutrophils % 54.6 %
[2016-06-07 05:50] LABS: Albumin 2.3 g/dL (3.5-5.0); Albumin/Globulin Ratio 0.7 (1.1-2.2); Bilirubin,Indirect 0.8 mg/dL (0.0-1.2); Bilirubin,Total 3.1 mg/dL (0.2-1.2); Globulin 3.3 g/dL (2.4-3.5); Total Protein 5.6 g/dL (6.0-8.3)
[2016-06-07 05:51] LABS: Bilirubin,Direct 2.3 mg/dL (0.0-0.5)
[2016-06-07 05:52] LABS: Alanine Aminotransferase 210 Units/L (0-55); Albumin 2.3 g/dL (3.5-5.0); Albumin/Globulin Ratio 0.7 (1.1-2.2); Alkaline Phosphatase 271 Units/L (38-126); Aspartate Amino Transferase 97 Units/L (5-34); BUN/Creatinine Ratio 26 (6-26); Blood Urea Nitrogen 25 mg/dL (8-26); Calcium 7.9 mg/dL (8.6-10.8); Carbon Dioxide 23 mEq/L (19-29); Chloride 109 mEq/L (98-109); Globulin 3.3 g/dL (2.4-3.5); Glucose 78 mg/dL (70-99); Osmolality,Calculated 293 (280-300); Sodium 140 mEq/L (136-145); Total Protein 5.6 g/dL (6.0-8.3); eGFR For African Americans > 60 (> 60); eGFR For Non-African Americans > 60 (> 60)
[2016-06-07 05:53] LABS: Bilirubin,Total 3.1 mg/dL (0.2-1.2)
[2016-06-07] MEDS: Pantoprazole 40 MG VIAL IVP SCH (09:00)
--- NOTE | 2016-06-07 09:03 | ECHO - Doppler Report ---
Echocardiogram Name: Camilo Rainey Date of Study: 06/06/2016 Date: 1925 Ht: 71.0 in Medical Record#: [id number] Age: 89 Wt: 182.0 lb Gender: Male BSA: 2.03 Order #: [id number] Location: [facility] Room #: 3A23 Reading Physician: Jojo Ty DO Fan Mail Editor: Suellen Ivey RDCS Ordering Physician: Lexis Guan MD Primary Physician: Ines Turner CNP Indications: Elevated Troponin Impressions: LVEF 60%. Not all myocardial segments were well visualized. Normal left ventricular size and systolic function. There is evidence of mild diastolic dysfunction of the left ventricle. RV is not well evaluated. No significant valvular dysfunction. No pulmonary hypertension. Left Ventricular Wall Motion: Rest Echo Findings All wall segments showed normal motion. Findings: Study Quality * Technically sub-optimal due to body habitus. Aortic Valve * No aortic regurgitation. * Aortic valve not well visualized. * No aortic stenosis. Mitral Valve * No mitral regurgitation. * Normal mitral valve structure. * No mitral stenosis. Tricuspid Valve * Tricuspid valve not well visualized. * No tricuspid regurgitation. Pulmonic Valve * Pulmonic valve is not well visualized. * No pulmonic stenosis. * No pulmonic regurgitation. Pulmonary Artery * Pulmonary artery not well visualized. ECG Findings * Normal sinus rhythm. Left Ventricle * LVEF 60%. * Normal LV chamber size, wall thickness and function. * Mild left ventricular diastolic dysfunction. Right Ventricle * RV is not well evaluated. Left Atrium * Normal left atrial size. Right Atrium * Right atrium is not well visualized. Interatrial Septum * Interatrial septum not well evaluated. IVC * The IVC is not well evaluated. Pericardium * There is no pericardial effusion present. Aorta * Suboptimally visualized. History Hypertension 08/25/2015 a Previous Echo was performed. Measurements: BP: 143/ 65 2D Normal Values IVSd: .87 cm 0.6 - 1.0 cm LVIDd: 4.57 cm 3.7 - 5.6 cm LVPWd: .98 cm 0.6 - 1.1 cm LVIDs: 2.55 cm 1.5 - 3.6 cm AO: 2.20 cm < 4.0 cm LA: 2.80 cm 2.0 - 4.0cm %FS: 44.20 cm >25 % LA volume: 34 Mitral Valve Peak E:.89 m/sec Peak A:1.04 m/sec E/A Ratio:0.9 Peak E' Lat Dc:8.81 cm/s Peak E' Med Dc:9.03 cm/s E/E' Lat Ratio:10.1 E/E' Med Ratio:9.8 Tricuspid Valve TV Regurg Peak Grad: 7.00mmHg TV Regurg Peak Dc: 1.29m/sec Updated by Jojo Ty on 06/07/2016 8:57:52 AM electronically signed on 06/07/2016 8:58:52 AM with status of Final Wall Motion [place]: 1=Normal, 2=Hypokinesis, 3=Akinesis, 4=Dyskinesis, 5=Aneurysmal, 6=Hyperkinetic, X=Not Visualized (Blank)=Missing
--- NOTE | 2016-06-07 09:04 | Internal Med Progress Note ---
<Mandy Henriquez - Last Filed: 06/07/16 14:06> Date of Encounter: 06/07/16 Time of Encounter: 09:02 - Assessment and plan (1) Sepsis Current Visit: Yes Status: Acute Assessment and plan: Resolved. T97.3, H76, WBC 8.3 today. Will continue IV abx/IVF. -3 SIRS criteria (fever, tachycardia and leukocytosis) on admission with cholecystitis as most likely source of infection. Qualifiers: Sepsis type: sepsis due to unspecified organism Qualified Code(s): A41.9 - Sepsis, unspecified organism (2) Cholecystitis Current Visit: Yes Status: Chronic Assessment and plan: Patient presented with RUQ abdominal pain, fever, chills, nausea, vomiting. CT abdomen/pelvis with gallbladder thickening, wall calcification, fild fat induration suggestive of acute vs. chronic cholecystitis. There was moderate intrahepatic and mild extrahepatic biliary dilatation. MRCP showed cholelithiasis and possible tumefactive biliary sludge, focal narrowing of the common hepatic duct proximal to the confluence with the cystic duct with edematous wall thickening of the extrahepatic ducts suggestive of cholangitis vs cholangiocarcinoma. Today WBC 8.3, Total bili 3.1, Direct Bili 2.3, AST 98, ALT 214, Alk Phos 275. Plan: -Day 3 of Zosyn/IVF 100cc/hr -NPO -GI consulted for possible ERCP, appreciate any further recommendations -Surgery consulted for possible cholecystectomy, will wait for GI recommendations (3) Pancreatitis Current Visit: Yes Status: Acute Assessment and plan: Patient presented with epigastric abdominal pain, N/V. CT abdomen/pelivs showed pancreatic head inflammatory changes. Lipase >1200. Likely secondary to gall stones. BISAP score is 3 (age, effusion, SIRS) which suggests significant mortality risk. Today patients abdominal pain and nausea has resolved, he is afebrile, WBC 8.3. Will continue IVF. Patient reports he is hungry but we will continue NPO with possible ERCP. Qualifiers: Chronicity: acute Pancreatitis type: biliary Acute pancreatitis complication: unspecified Qualified Code(s): K85.10 - Biliary acute pancreatitis without necrosis or infection (4) Duodenitis Current Visit: Yes Status: Acute Assessment and plan: - CT A/P showed 2nd & 3rd portion duodenal inflammation that may be associated with peptic ulcer disease. GI consulted. Will continue 40mgProtonix IVP daily. (5) Elevated troponin Current Visit: Yes Status: Acute Assessment and plan: - Troponin elevated at 0.07 on admission but later trended down to 0.04. - No significant ischemic change on EKG. - Echo showed LVEF 60 with mild LV diastolic dysfunction, no significant change from prior echo. (6) Anemia Current Visit: No Status: Acute Assessment and plan: H/H 9.0/26.4 today. Baseline since appears to be ~11. Likely acute dilutional on top of chronic. Patient denies blood in vomit, stool, urine. Will continue to monitor. Qualifiers: Anemia type: other cause Other causes of anemia: other cause, not classified Qualified Code(s): D64.89 - Other specified anemias (7) Hypertension Current Visit: No Status: Chronic Assessment and plan: BP 134/61 today. Will continue to HOLD home amlodipine and enalapril. Qualifiers: Hypertension type: essential hypertension Qualified Code(s): I10 - Essential (primary) hypertension (8) DVT prophylaxis Current Visit: Yes Status: Acute Assessment and plan: -Crista Prediction score is 3. Will continue mechanical SCD for DVT prophylaxis. - Subjective Interval history: I have seen and examined the patient this morning. He reports he is feeling fine this morning. His abdominal pain and nausea have resolved. He denies chills , sob, cp, nausea, vomiting, diarrhea, constipation, abdominal pain, or any other pain a this time. He reports he did not sleep well at all. He usually takes Restoril at home to help with sleep and would like to know if this can be given in the hospital as well. - Constitutional Vitals: Temp Pulse Resp BP Pulse Ox 97.3 F L 76 16 134/61 95 06/07/16 07:46 06/07/16 07:46 06/07/16 07:46 06/07/16 07:46 06/07/16 07:46 General appearance: Present: cooperative, A&O X 3, pleasant, no acute distress, answers questions appropriately - Head Head exam: Present: atraumatic, normocephalic - Eye Eye exam: Present: PERRL, conjuntiva pink, sclera anicteric Pupils: Present: PERRL - Neck Neck exam general surgery: Present: supple, trachea midline. Absent: lymphadenopathy - Respiratory Respiratory exam: Present: CTAB. Absent: accessory muscle use, rales, rhonchi, wheezes - Cardiovascular Cardiovascular exam: Present: RRR, +S1, +S2. Absent: diastolic murmur, gallop, rubs, systolic murmur - GI/Abdominal GI/Abdominal exam: Present: normal bowel sounds, soft, no peritoneal signs. Absent: distended, firm, guarding, rebound, rigid, tenderness - Extremities Exam Extremities exam: Present: warm, radial pulses palpable and symetrical. Absent : calf tenderness, cyanotic, pedal edema - Back Exam Back exam: Present: normal inspection. Absent: muscle spasm - Neurological Exam Neurological exam: Present: CN II-XII intact, oriented X3, no focal deficits. Absent: pronater drift, facial droop, speech deficit - Psychiatric Psychiatric exam: Present: agitated, normal affect - Skin Skin exam: Present: dry, intact Internal Medicine: Result - Labs CBC & Chem 7: 06/07/16 04:17 06/07/16 04:17 Labs: Short CBC 06/07/16 Range/Units 04:17 WBC 8.3 (4.3-11.1) K/mcL Hgb 9.0 L (12.9-16.9) g/dL Hct 26.4 L (37.5-50.1) % Plt Count 361 (140-400) K/mcL Neutrophils # 4.5 (1.6-8.9) K/mcL BMP 06/07/16 04:17 Sodium 140 Potassium 4.0 Chloride 109 Carbon Dioxide 23 BUN 25 Creatinine 0.98 Glucose 78 Calcium 7.9 L Liver Function 06/07/16 06/07/16 Range/Units 04:17 04:17 Total Bilirubin 3.1 H 3.1 H (0.2-1.2) mg/dL Direct Bilirubin 2.3 H D (0.0-0.5) mg/dL AST 97 H 98 H (5-34) Units/L ALT 210 H 214 H (0-55) Units/L Alkaline Phosphatase 271 H 275 H (38-126) Units/L Albumin 2.3 L 2.3 L (3.5-5.0) g/dL Urine 06/06/16 Range/Units 15:33 Urine Color Dark Yellow (Yellow) Urine Clarity Slightly Hazy (Clear) Urine pH 6.5 (5.0-8.0) pH Units Ur Specific [place] 1.022 (1.010-1.025) Urine Protein Trace (Neg-Trace) mg/dL Urine Glucose (UA) Normal (Normal) mg/dL - ABG Interpretation ABG results: PT/INR, D-dimer PT 16.8 Seconds (9.4-12.1) H 06/07/16 04:17 - Impressions Impressions Abdomen MRI 06/06/16 09:18 IMPRESSION: 1. Cholelithiasis and suspected tumefactive biliary sludge with findings suggestive of cholecystitis. 2. No definite findings of choledocholithiasis or biliary obstruction. However, there is focal narrowing of the common hepatic duct just proximal to the confluence with the cystic duct. Additionally, there may be edematous wall thickening of the extrahepatic ducts in addition to mild periportal edema. These findings could be related to cholangitis or cholangiocarcinoma. Consider further characterization with ERCP or liver protocol MRI. 3. No definite findings of pancreatitis or duodenitis on this examination. 4. Increased trace bilateral effusions and trace ascites, likely reactive. D/ / Neto Cabrera MD / Neto Cabrera MD Interpreting Provider: Neto Cabrera MD Abdomen Ultrasound 06/06/16 14:30 IMPRESSION: As was seen at CT, Gallbladder wall is thickened and there is stones and sludge within the gallbladder lumen. Cholecystitis not excluded based on these findings although the common bile duct is appropriate for age. Incidental right pleural effusion. D/ / Lincoln Foreman MD / Lincoln Foreman MD Interpreting Provider: Lincoln Foreman MD Consult Discharge Plan - Plan Referrals: Ines Turner, AYESAH [Primary Care Provider] - <Lexis Guan - Last Filed: 06/07/16 18:54> - Constitutional Vitals: Temp Pulse Resp BP Pulse Ox 97.3 F L 75 16 157/62 99 06/07/16 15:08 06/07/16 15:08 06/07/16 15:08 06/07/16 15:08 06/07/16 15:08 Internal Medicine: Result - Labs CBC & Chem 7: 06/07/16 04:17 06/07/16 04:17 Labs: Short CBC 06/07/16 Range/Units 04:17 WBC 8.3 (4.3-11.1) K/mcL Hgb 9.0 L (12.9-16.9) g/dL Hct 26.4 L (37.5-50.1) % Plt Count 361 (140-400) K/mcL Neutrophils # 4.5 (1.6-8.9) K/mcL BMP 06/07/16 04:17 Sodium 140 Potassium 4.0 Chloride 109 Carbon Dioxide 23 BUN 25 Creatinine 0.98 Glucose 78 Calcium 7.9 L Liver Function 06/07/16 06/07/16 Range/Units 04:17 04:17 Total Bilirubin 3.1 H 3.1 H (0.2-1.2) mg/dL Direct Bilirubin 2.3 H D (0.0-0.5) mg/dL AST 97 H 98 H (5-34) Units/L ALT 210 H 214 H (0-55) Units/L Alkaline Phosphatase 271 H 275 H (38-126) Units/L Albumin 2.3 L 2.3 L (3.5-5.0) g/dL - ABG Interpretation ABG results: PT/INR, D-dimer PT 16.8 Seconds (9.4-12.1) H 06/07/16 04:17 - Attending Attestation I examined this patient and reviewed laboratory, imaging and all diagnostic data. My medical decision-making was reviewed with Joe Ortiz - Resident Physician. I agree with the documented findings, disposition and treatment plan as described above.
--- NOTE | 2016-06-07 11:46 | Gastroenterology Consult Note ---
<RaymundoNeto crain Birdie - Last Filed: 06/07/16 11:43> Date of Encounter: 06/07/16 Time of Encounter: 10:30 - Assessment and plan (1) Cholecystitis Current Visit: Yes Status: Chronic Assessment and plan: RUQ US showed thickened gallbladder wall and stones and sludge within the gallbladder lumen. MRI showed cholelithiasis and suspected tumefactive biliary sludge suggestive of cholecystitis. No choledocholithiasis or biliary obstruction. There is focal narrowing of the common hepatic duct just proximal to the confluence with the cystic duct. There may be edematous wall thickening of the extrahepatic ducts in addition to mild periportal edema. These could be related to cholangitis or cholangiocarcinoma. Recommend cholecystectomy with intraoperative cholangiogram. If IOC abnormal and liver labs continue to be increased, will consider ERCP. (2) Elevated LFTs Current Visit: Yes Status: Acute (3) Gallstone pancreatitis Current Visit: Yes Status: Acute Assessment and plan: BISAP on admission 2. Lipase >1200 on admission, and decreased to 830. CT A/P showed mild pancreatic inflammation. RUQ US showed thickened gallbladder wall and stones and sludge within the gallbladder. Recommend cholecystectomy. Continue IV fluids, pain control, and antiemetics. (4) Sepsis Current Visit: Yes Status: Acute Assessment and plan: Pt with fever, tachycardia, and leukocytosis on admission. Resolved now. Continue IV ATB. Qualifiers: Sepsis type: sepsis due to unspecified organism Qualified Code(s): A41.9 - Sepsis, unspecified organism - Time Spent With Patient Total time spent is greater than 50% in coordination of care (as documented) at patient's floor/unit and/or counseling patient: GI History of Present Illness - Data of Consult Patient: new to practice Consult date: 06/07/16 Requesting Physician: Lexis Guan - Consult Narrative Reason for consult: ERCP History of present illness: Mr. Rainey is a 89 year old male with PMHx of arthritis, HTN, osteoporosis, CKD , who presented to the ED with intermittent abdominal pain, fever, chills, nausea that started about a week ago. The symptoms have been happening more frequently and seem to be more intense as well. He denies fever, chills, nausea , vomiting, diarrhea, constipation, melena, or hematochezia. Bilirubin and LFTs elevated on admission. RUQ US and MRI abd abnormal. Procedures: None NSAIDs: ASA Anticoagulation: None Past Med Surg Social Fam HX - Past Medical History Medical history: arthritis, hyperlipidemia, hypertension, osteoporosis, renal disease, thyroid disease, syncope, other (RBBB) Psychiatric history: anxiety - Past Surgical History Surgical History: cataract, knee replacement (left), other (skin cancer removal , trigger finger release, TURP, colonoscopy) - Social History Smoking Status: Former smoker Smokeless Tobacco Status: No Alcohol use: none Drug use: none - Family History Brother Hx Family Cardiac Disorders: Yes ([place]) Mother Living Status: Hx Family Cardiac Disorders: No Hx Family Respiratory Disorders: No Hx Family Cancer: No Hx Family GI Disorders: Yes Hx Family Genitourinary Disorders: No Hx Family Endocrine Disorder: No Hx Family Musculoskeletal Disorders: No Hx Family Neuromuscular Disorders: No Hx Family Neurologic Disorders: No Hx Family HEENT Disorders: Yes (THROAT CANCER.) - Gastrointestinal Gastrointestinal: Present: as per HPI - Constitutional Constitutional: as per HPI - EENT Eyes: as per HPI Ears: Present: as per HPI Nose, mouth and throat: Present: as per HPI - Cardiovascular Cardiovascular ROS: Present: as per HPI - Respiratory Respiratory IM: Present: as per HPI - Genitourinary Genitourinary: Absent: change in color, Urinary frequency - Neurological ROS Neurological GI: Present: as per HPI - Hematologic/Lymphatic Hematologic/Lymphatic pediatric: Present: as per HPI - Musculoskeletal Musculoskeletal ROS GI: Present: as per HPI - Integumentary Integumentary GI: Present: as per HPI - Psychiatric ROS Psychiatric GI: Present: as per HPI - Endocrine Endocrine IM: Present: as per HPI - Constitutional Vitals: Temp Pulse Resp BP Pulse Ox 97.8 F 70 16 151/78 98 06/07/16 11:00 06/07/16 11:00 06/07/16 11:00 06/07/16 11:00 06/07/16 11:00 General appearance: Present: cooperative, A&O X 3, no acute distress, answers questions appropriately - Head Head exam: Present: atraumatic, normocephalic - Eye Eye exam: Present: normal appearance, sclera anicteric - ENT ENT exam: Present: mucous membranes dry - Neck Neck exam general surgery: Present: normal inspection, trachea midline - Respiratory Respiratory exam: Present: CTAB - Cardiovascular Cardiovascular exam: Present: RRR, +S1, +S2 - GI/Abdominal GI/Abdominal exam: Present: soft, no peritoneal signs. Absent: distended, firm , guarding, tenderness - Rectal Rectal exam: Present: deferred - Extremities Exam Extremities exam: Present: warm - Neurological Exam Neurological exam: Present: no focal deficits - Psychiatric Psychiatric exam: Present: normal affect, normal mood - Skin Skin exam: Present: dry, intact, normal color, warm Results - Labs CBC & Chem 7: 06/07/16 04:17 06/07/16 04:17 Labs: Last Result Calcium 7.9 mg/dL (8.6-10.8) L 06/07/16 04:17 Troponin I 0.04 ng/mL (0-0.03) H* 06/06/16 06:15 Triglycerides 42 mg/dL (< 150) 06/05/16 16:49 Entire Visit Hgb 9.0 g/dL (12.9-16.9) L 06/07/16 04:17 Hct 26.4 % (37.5-50.1) L 06/07/16 04:17 PT 16.8 Seconds (9.4-12.1) H 06/07/16 04:17 Total Bilirubin 3.1 mg/dL (0.2-1.2) H 06/07/16 04:17 AST 97 Units/L (5-34) H 06/07/16 04:17 ALT 210 Units/L (0-55) H 06/07/16 04:17 Lipase 830 Units/L (8-78) H 06/06/16 06:15 - ABG ABG results: PT/INR, D-dimer PT 16.8 Seconds (9.4-12.1) H 06/07/16 04:17 - Impressions Impressions Abdomen MRI 06/06/16 09:18 IMPRESSION: 1. Cholelithiasis and suspected tumefactive biliary sludge with findings suggestive of cholecystitis. 2. No definite findings of choledocholithiasis or biliary obstruction. However, there is focal narrowing of the common hepatic duct just proximal to the confluence with the cystic duct. Additionally, there may be edematous wall thickening of the extrahepatic ducts in addition to mild periportal edema. These findings could be related to cholangitis or cholangiocarcinoma. Consider further characterization with ERCP or liver protocol MRI. 3. No definite findings of pancreatitis or duodenitis on this examination. 4. Increased trace bilateral effusions and trace ascites, likely reactive. D/ / Neto Cabrera MD / Neto Cabrera MD Interpreting Provider: Neto Cabrera MD Abdomen Ultrasound 06/06/16 14:30 IMPRESSION: As was seen at CT, Gallbladder wall is thickened and there is stones and sludge within the gallbladder lumen. Cholecystitis not excluded based on these findings although the common bile duct is appropriate for age. Incidental right pleural effusion. D/ / Lincoln Foreman MD / Lincoln Foreman MD Interpreting Provider: Lincoln Foreman MD Consult Discharge Plan - Plan Referrals: Ines Turner, SYRUP MAKER [Primary Care Provider] - <Christiano Bonilla - Last Filed: 06/07/16 17:49> Time of Encounter: 13:00 - Time Spent With Patient Total time spent is greater than 50% in coordination of care (as documented) at patient's floor/unit and/or counseling patient: GI History of Present Illness - Data of Consult Requesting Physician: Lexis Guan - Consult Narrative History of present illness: Mr. Rainey is a 89 year old male - Constitutional Vitals: Temp Pulse Resp BP Pulse Ox 97.3 F L 75 16 157/62 99 06/07/16 15:08 06/07/16 15:08 06/07/16 15:08 06/07/16 15:08 06/07/16 15:08 Results - Labs CBC & Chem 7: 06/07/16 04:17 06/07/16 04:17 Labs: Last Result Calcium 7.9 mg/dL (8.6-10.8) L 06/07/16 04:17 Troponin I 0.04 ng/mL (0-0.03) H* 06/06/16 06:15 Triglycerides 42 mg/dL (< 150) 06/05/16 16:49 Entire Visit Hgb 9.0 g/dL (12.9-16.9) L 06/07/16 04:17 Hct 26.4 % (37.5-50.1) L 06/07/16 04:17 PT 16.8 Seconds (9.4-12.1) H 06/07/16 04:17 Total Bilirubin 3.1 mg/dL (0.2-1.2) H 06/07/16 04:17 AST 97 Units/L (5-34) H 06/07/16 04:17 ALT 210 Units/L (0-55) H 06/07/16 04:17 Lipase 830 Units/L (8-78) H 06/06/16 06:15 - ABG ABG results: PT/INR, D-dimer PT 16.8 Seconds (9.4-12.1) H 06/07/16 04:17 - Attending Attestation I examined this patient and my medical decision-making was reviewed with the WELDER PIPE [employer]KING/PA/Advanced Practice Nurse/Resident Physician. I agree with the documented findings, disposition and treatment plan as described except to the extent set forth below.
--- NOTE | 2016-06-07 20:57 | Operative Note ---
Date of procedure: 06/07/16 Pre-op diagnosis: Cholecystits Post-op diagnosis: same Procedure: laparoscopic cholecystectomy with cholangiogram Anesthesia: MARITZA Surgeon: Rene Perry Estimated blood loss (cc): 5 Specimen: GB Condition: stable Disposition: same day Procedure in Detail: After informed consent this patient was taken the operating room placed supine position. After adequate sedation anesthesia the abdomen was prepped and draped. A proper timeout was performed. Two towel clamps are placed at the umbilicus and a Veres needle was inserted into the abdomen. A 5 mm incision was made at the umbilicus. A 12 mm incision was made in the subxiphoid region. Two 5 mm incisions were made in the right upper quadrant that were 4 finger breadths and 6 finger breadths below the costal margin. The gallbladder was identified, retracted anteriorly and cephalad, and the infundibulum was skeletonized. The cystic duct was clipped distally. The cystic duct was then transected with scissors. The gallbladder was resected off the liver surface. There was excellent hemostasis. The gallbladder was then retrieved through the 12 mm cannula site. At this point the abdomen was suctioned dry and the pneumoperitoneum was then evacuated. All ports were removed. The 12 mm cannula site was closed with an 0 Vicryl suture in [id number] fashion. A 19 Ethiopian Jose drain was placed. The skin was closed with 4-0 Vicryl suture. Dermabond was placed as well. All instrument counts and needle counts are correct in the operation. The patient tolerated the procedure well and was transferred to the PACU in stable condition.
[2016-06-07] MEDS ORDERED: Melatonin 3 MG TABLET PO SCH (21:00)
--- NOTE | 2016-06-07 22:31 | Anesthesia Evaluation PreOp ---
Date of Encounter: 06/07/16 Time of Encounter: 22:58 - Past History Planned Operation: Laparoscopic Cholecystectomy Cardiac History: HTN, Hyperlipidemia Pulmonary History: Former smoker (quit 40 years ago) [employer] History: Syncope (vasovagal) Other Medical History: Renal (CKD), Thyroid, Other (pancreatitis, anxiety) Anesthesia History: No Prior Anesthetic Complications, Past Anesthesia Alcohol Use: none Drug use: none Medications and Allergies Amlodipine Besylate 2.5 mg PO DAILY #0 08/25/15 [History] Enalapril Maleate [Vasotec] 40 mg PO DAILY 08/25/15 [History] Levothyroxine [Synthroid] 150 mcg PO QAM 08/25/15 [History] Tamsulosin [Flomax] 0.4 mg PO DAILY 08/25/15 [History] Aspirin 81 mg PO DAILY tab.chew 08/26/15 [Rx] Melatonin 6 mg PO HS 06/05/16 [History] Temazepam [Restoril] 22.5 mg PO HS PRN 06/05/16 [History] Allergies No Known Allergies Allergy (Verified 05/22/16 13:41) - Meds/Allergy Pre-op Review Medications Reviewed: Yes Allergies Reviewed: Yes Beta Blockers on Current Med List: No Anesthesia Results - Labs 06/07/16 04:17 06/07/16 04:17 - Imaging EKG: report reviewed (06/05/2016 SR, RBBB) Additional studies: 06/06/2016 Echo LVEF 60% mild LV diastolic dysfunction no significant valvular dysfunction Anesthesia Exam Vital Signs/O2 Sat/Glucose, Most Recent Temp Pulse Resp BP Pulse Ox 98.3 F 79 16 159/66 98 06/07/16 19:54 06/07/16 19:54 06/07/16 19:54 06/07/16 19:54 06/07/16 19:54 Blood Glucose* 72 Height: 5'11''/1.8 m Weight: 173 lbs/78.6 kg NPO (# of Hours): 8 Pain Scale: 0 Pain Scale Used: Numeric (1 - 10) - HEENT Pupil (Motor): EOMI Mallampati: II Teeth: Edentulous Oral Opening: Greater than 3 - TEACHER [employer] LOC: Oriented TEACH[employer] Motor: Normal RUE, Normal LUE, Normal RLE, Normal LLE, Normal Face [employer]ACHER [employer] Sensory: Normal: RUE, LUE, RLE, LLE, Face - Cardiac Rhythm: Regular Murmur: None - Pulmonary Breath Sounds: bilateral Clear Respiratory Effort: Symmetrical Anesthesia Assess/Plan ASA Score: 3 Modified Rutherford Scale for Level of Consciousness: Cooperative, oriented, and tranquil Anesthetic Plan: General Monitoring Plan: Standard Monitors Recovery Plan: PACU
[2016-06-07] MEDS ORDERED: *HR* Propofol 200 MG/20 ML VIAL IVP ONE (22:34)
[2016-06-07] MEDS ORDERED: Lidocaine -MPF 2% 2 ML VIAL ONE (22:34)
[2016-06-07] MEDS ORDERED: *HR* Succinylcholine 200 MG/10 ML VIAL IVP ONE (22:34)
[2016-06-07] MEDS ORDERED: *HR* Rocuronium Bromide 50 MG/5 ML VIAL ONE (22:34)
[2016-06-07] MEDS ORDERED: *HR* FentaNYL (PF) 100 MCG/2 ML VIAL ONE (22:34)
[2016-06-07] MEDS ORDERED: *HR* Morphine 10 MG/ML VIAL ONE (23:39)
[2016-06-07] MEDS ORDERED: Ondansetron 4 MG/2 ML VIAL ONE (23:47)
[2016-06-07] MEDS ORDERED: Dexamethasone 4 MG/ML VIAL ONE (23:47)
[2016-06-07] MEDS ORDERED: Neostigmine Methylsulfate 3 MG/3 ML SYRINGE ONE (23:48)
[2016-06-08] MEDS: *HR* HYDROmorphone (PF) 1 MG/ML SYRINGE IVP PRN ×3 (00:24→00:44)
--- NOTE | 2016-06-08 00:57 | Anesthesia Evaluation Post Op ---
Date of Encounter: 06/08/16 Time of Encounter: 00:56 - Vital Signs Vital Signs: Vital Signs/O2 Sat, Most Current Temp Pulse Resp BP Pulse Ox 98.2 F 83 16 176/76 96 06/08/16 00:50 06/08/16 00:50 06/08/16 00:50 06/08/16 00:50 06/08/16 00:50 - Lungs Lungs: Clear Ascult./Percussion - Airway Airway: Non-obstructed - Cardiovascular Regular Rate - Mental Status Mental Status: Alert & Oriented, Answers Appropriately - Pain Pain Scale: 6 (states pain is tolerable) Pain Scale used: Numeric (1 - 10) - Nausea Vomiting Nausea Vomiting: Not Present - Hydration Hydration: Ice chips, Has not voided - Discharge PostOp Status: Transfer Patient to floor
[2016-06-08] MEDS ORDERED: Ondansetron 4 MG/2 ML VIAL IVP PRN (01:17)
[2016-06-08] MEDS ORDERED: *HR* Dextrose 50 % in Water (Syg) 50 ML SYRINGE IVP PRN (01:17)
[2016-06-08] MEDS ORDERED: *HR* Morphine 2 MG/ML SYRINGE IVP PRN (01:17)
[2016-06-08] MEDS ORDERED: Dextrose Gel 15 GM PO PRN ×2 (01:17)
[2016-06-08 04:36] LABS: Basophils % 0.2 %; Eosinophils % 0.1 %; Hematocrit 30.5 % (37.5-50.1); Hemoglobin 9.7 g/dL (12.9-16.9); Immature Granulocytes % 0.8 % (0-4); Lymphocytes # 2.8 K/mcL (0.6-4.6); Lymphocytes % 16.4 %; Mean Corpuscular HGB Conc 31.8 g/dL (31.6-35.5); Mean Corpuscular Hemoglobin 30.9 pg (28.0-33.3); Mean Corpuscular Volume 97.1 fL (83.0-100.0); Mean Platelet Volume 9.1 fL (9.4-12.4); Monocytes # 0.3 K/mcL (0.0-1.3); Monocytes % 1.7 %; Neutrophils # 13.7 K/mcL (1.6-8.9); Platelet Count 452 K/mcL (140-400); Red Blood Count 3.14 M/mcL (4.19-5.50); Red Cell Distribution Width 12.8 % (11.5-14.5); Segmented Neutrophils % 80.8 %
[2016-06-08 04:55] LABS: Alanine Aminotransferase 191 Units/L (0-55); Albumin 2.6 g/dL (3.5-5.0); Albumin/Globulin Ratio 0.7 (1.1-2.2); Alkaline Phosphatase 285 Units/L (38-126); Aspartate Amino Transferase 81 Units/L (5-34); BUN/Creatinine Ratio 24 (6-26); Bilirubin,Total 1.5 mg/dL (0.2-1.2); Blood Urea Nitrogen 23 mg/dL (8-26); Calcium 8.5 mg/dL (8.6-10.8); Carbon Dioxide 16 mEq/L (19-29); Chloride 109 mEq/L (98-109); Globulin 3.9 g/dL (2.4-3.5); Glucose 96 mg/dL (70-99); Osmolality,Calculated 292 (280-300); Potassium 4.6 mEq/L (3.5-4.5); Sodium 139 mEq/L (136-145); Total Protein 6.5 g/dL (6.0-8.3); eGFR For African Americans > 60 (> 60); eGFR For Non-African Americans > 60 (> 60)
[2016-06-08] MEDS ORDERED: Pantoprazole 40 MG VIAL IVP SCH (06:30)
[2016-06-08] MEDS ORDERED: Piperacillin/Tazobactam 3.375 GM in D5% in Water (Mini-Bag+) 100 ML IVPB SCH (08:00)
[2016-06-08] MEDS ORDERED: Lisinopril 20 MG TABLET PO SCH (10:15)
[2016-06-08] MEDS: amLODIPine 5 MG TABLET PO SCH (11:28)
[2016-06-08] MEDS ORDERED: *HR* HYDROcodone/Acet 5/325 mg TABLET PO PRN (11:44)
[2016-06-08] MEDS ORDERED: TEMAZEPAM 22.5 MG PO PRN (11:45)
--- NOTE | 2016-06-08 11:53 | General Surgery Progress Note ---
Date of Encounter: 06/08/16 Time of Encounter: 11:30 - Assessment and Plan (1) Cholelithiasis Current Visit: Yes Status: Acute POD #1 Lap Cholecystectomy with Dr. Perry Pathology pending Discussed need for ERCP and EUS with Dr. Bonilla- he will see the patient as an outpatient Supportive care/pain control Advance to full liquids Decrease IV fluids to 60ml/hour Repeat labs Increase activity as tolerated- out of bed to chair and ambulate with assistance IS every 1 hour while awake resume home medication regimen Qualifiers: Cholelithiasis location: gallbladder Cholecystitis presence: with cholecystitis Cholecystitis acuity: unspecified acuity Biliary obstruction: with biliary obstruction Qualified Code(s): K80.01 - Calculus of gallbladder with acute cholecystitis with obstruction (2) Cholecystitis Current Visit: Yes Status: Chronic POD #1 Laparoscopic cholecystectomy with Dr. Orlando Romeo d/c zosyn May advance to full liquids today Decrease IV fluids to 60ml/hour Supportive care/pain control Repeat labs (3) Elevated LFTs Current Visit: Yes Status: Acute Improved Repeat am labs (4) BPH (benign prostatic hyperplasia) Current Visit: Yes Status: Chronic Resume flomax Monitor urine output Qualifiers: Prostatic enlargement morphology: unspecified morphology Lower urinary tract symptom presence: presence of symptoms unspecified Qualified Code(s): N40.0 - Benign prostatic hyperplasia without lower urinary tract symptoms (5) DVT prophylaxis Current Visit: Yes Status: Acute EPCDs to bilateral lower extremities for DVT prophylaxis Subjective Patient reports: no new complaints, feels better, tolerating liquids well, voiding w/o difficulty, no flatus, no bowel movement, afebrile Objective Vital Signs - Last 8 Hours Temp Pulse Resp BP Pulse Ox 06/08/16 11:13 98.6 F 85 18 158/67 94 L 06/08/16 06:39 97.9 F 95 18 168/70 97 06/08/16 04:50 97.7 F 88 16 170/77 06/08/16 04:00 97.9 F 87 14 162/78 95 Intake and Output 06/07/16 06/08/16 06/08/16 23:59 07:59 15:59 Intake Total 0 / 0 1000 / 1000 Output Total 100 / 100 130 / 130 30 / 30 Balance -100 / -100 -130 / -130 970 / 970 Intake: IV Fluids 1000 / 1000 0.45% Sodium Chloride 1000 / 1000 1000 Ml 1000 Ml 1,000 ML @ 100 mls/hr IVC .Q10H KOLE Rx#:[id number] Oral 0 / 0 Output: Urine 100 / 100 0 / 0 0 / 0 Estimated Blood Loss 100 / 100 Wound Drainage 30 30 Right Abdomen Other: # Bowel Movements 0 0 Weight 79.6 kg Blood Glucose* 72 92 Patient Weight 06/08/16 23:59 Weight 79.6 kg - General physical appearance well developed, well nourished, no distress - Eyes normal ocular movement - ENT normal mucosa, atraumatic, normocephalic - Neck Neck exam: trachea midline - Respiratory normal respiratory effort, clear to auscultation - Cardiovascular Cardiovascular exam: Present: RRR - Abdomen Abdomen: Present: bowel sounds present, soft, tender (Minimal, expected post- operative tenderness), wound (VINCENT drain to bulb suction with serousang. drainage (50ml since midnight)) - Incision Incision: Present: clean and dry, intact - Neurologic CN 2-12 grossly intact - Psychiatric oriented to time, oriented to person, oriented to place, speech is normal, memory intact - Labs 06/08/16 03:54 06/08/16 03:54 Diabetes panel 06/08/16 Range/Units 03:54 Sodium 139 (136-145) mEq/L Potassium 4.6 H (3.5-4.5) mEq/L Chloride 109 (98-109) mEq/L Carbon Dioxide 16 L (19-29) mEq/L BUN 23 (8-26) mg/dL Creatinine 0.96 (0.72-1.25) mg/dL Glucose 96 (70-99) mg/dL Calcium 8.5 L (8.6-10.8) mg/dL AST 81 H (5-34) Units/L ALT 191 H (0-55) Units/L Alkaline Phosphatase 285 H (38-126) Units/L Albumin 2.6 L (3.5-5.0) g/dL Calcium panel 06/08/16 Range/Units 03:54 Calcium 8.5 L (8.6-10.8) mg/dL Albumin 2.6 L (3.5-5.0) g/dL Pituitary panel 06/08/16 Range/Units 03:54 Sodium 139 (136-145) mEq/L Potassium 4.6 H (3.5-4.5) mEq/L Chloride 109 (98-109) mEq/L Carbon Dioxide 16 L (19-29) mEq/L BUN 23 (8-26) mg/dL Creatinine 0.96 (0.72-1.25) mg/dL Glucose 96 (70-99) mg/dL Calcium 8.5 L (8.6-10.8) mg/dL Adrenal panel 06/08/16 Range/Units 03:54 Sodium 139 (136-145) mEq/L Potassium 4.6 H (3.5-4.5) mEq/L Chloride 109 (98-109) mEq/L Carbon Dioxide 16 L (19-29) mEq/L BUN 23 (8-26) mg/dL Creatinine 0.96 (0.72-1.25) mg/dL Glucose 96 (70-99) mg/dL Calcium 8.5 L (8.6-10.8) mg/dL Total Bilirubin 1.5 H D (0.2-1.2) mg/dL AST 81 H (5-34) Units/L ALT 191 H (0-55) Units/L Alkaline Phosphatase 285 H (38-126) Units/L Albumin 2.6 L (3.5-5.0) g/dL - VTE Documentation of Mechanical Device: Intermittent pneumatic compression device Consult Discharge Plan - Plan Referrals: Ines Turner, SOLAR MANAGER [Primary Care Provider] - - Attending Attestation I examined this patient and my medical decision-making was reviewed with the ADMINISTRATIVE AIDE/PA/Advanced Practice Nurse/Resident Physician. I agree with the documented findings, disposition and treatment plan as described except to the extent set forth below.
--- NOTE | 2016-06-08 12:39 | Internal Med Progress Note ---
<Mandy Henriquez - Last Filed: 06/08/16 14:53> Date of Encounter: 06/08/16 Time of Encounter: 12:35 - Assessment and plan (1) Cholecystitis Current Visit: Yes Status: Chronic Assessment and plan: Patient presented with RUQ abdominal pain, fever, chills, nausea, vomiting. CT abdomen/pelvis with gallbladder thickening, wall calcification, fild fat induration suggestive of acute vs. chronic cholecystitis. There was moderate intrahepatic and mild extrahepatic biliary dilatation. MRCP showed cholelithiasis and possible tumefactive biliary sludge, focal narrowing of the common hepatic duct proximal to the confluence with the cystic duct with edematous wall thickening of the extrahepatic ducts suggestive of cholangitis vs cholangiocarcinoma. Patient is postop day one cholecystectomy. His abdominal pain and nausea have resolved. Today WBC 16.9, AST 81, ALT 191. Suspect WBC spike secondary to surgery yesterday. Case was discussed with COMMUNITY OUTREACH COORDINATOR from [facility]. It appeared that the intraoperative cholangiogram was abnormal but not infected. There is concern of possible malignancy and patient will follow up with Dr. Bonilla for further outpatient work-up. Plan: -discontinue Zosyn -IVF 100cc/hr -will continue to monitor overnight with possible discharge in the morning -Patient will need outpatient follow-up in 1-2 weeks with [facility] for workup of possible cholangiocarcinoma. (2) Sepsis Current Visit: Yes Status: Acute Assessment and plan: Resolved. T97.9, H85, WBC 16.9 today. Suspect spike in white blood cell count secondary to surgery yesterday. Will discontinue Zosyn today and continue to monitor. -3 SIRS criteria (fever, tachycardia and leukocytosis) on admission with cholecystitis as most likely source of infection. Qualifiers: Sepsis type: sepsis due to unspecified organism Qualified Code(s): A41.9 - Sepsis, unspecified organism (3) Pancreatitis Current Visit: Yes Status: Acute Assessment and plan: Resolved. Patient presented with epigastric abdominal pain, N/V. CT abdomen/ pelivs showed pancreatic head inflammatory changes. Lipase >1200. Likely secondary to gall stones. BISAP score on admission was 3 (age, effusion, SIRS) which suggests significant mortality risk. Qualifiers: Chronicity: acute Pancreatitis type: biliary Acute pancreatitis complication: unspecified Qualified Code(s): K85.10 - Biliary acute pancreatitis without necrosis or infection (4) Duodenitis Current Visit: Yes Status: Acute Assessment and plan: CT A/P showed 2nd & 3rd portion duodenal inflammation that may be associated with peptic ulcer disease. Will continue Prilosec 20 mg PO qAM. Patient will follow-up with Dr. Bonilla as an outpatient. (5) Elevated troponin Current Visit: Yes Status: Acute Assessment and plan: - Troponin elevated at 0.07 on admission but later trended down to 0.04. - No significant ischemic change on EKG. - Echo showed LVEF 60 with mild LV diastolic dysfunction, no significant change from prior echo. (6) Anemia Current Visit: No Status: Acute Assessment and plan: H/H 9.7/30.5 today. Baseline since appears to be ~11. Likely acute dilutional on top of chronic. Patient denies blood in vomit, stool, urine. Will continue to monitor. Qualifiers: Anemia type: other cause Other causes of anemia: other cause, not classified Qualified Code(s): D64.89 - Other specified anemias (7) Hypertension Current Visit: No Status: Chronic Assessment and plan: BP 168/70 today. Will restart home enalapril and amlodipine. Will continue to monitor. Qualifiers: Hypertension type: essential hypertension Qualified Code(s): I10 - Essential (primary) hypertension (8) BPH (benign prostatic hyperplasia) Current Visit: Yes Status: Chronic Assessment and plan: Patient has a history of BPH. Have restarted home Flomax. Continue to monitor urine output. Qualifiers: Prostatic enlargement morphology: unspecified morphology Lower urinary tract symptom presence: presence of symptoms unspecified Qualified Code(s): N40.0 - Benign prostatic hyperplasia without lower urinary tract symptoms (9) DVT prophylaxis Current Visit: Yes Status: Acute Assessment and plan: -Crista Prediction score is 3. Will continue mechanical SCD for DVT prophylaxis. - Subjective Interval history: I have seen and examined the patient this morning. He reports he is doing fine. He slept better last night. He has abdominal "fullness" around the incision site but denies abdominal pain. He denies chills, cp, sob, cough, wheezing, n/v , diarrhea or any other complaints at this time. - Constitutional Vitals: Temp Pulse Resp BP Pulse Ox 98.6 F 85 18 158/67 94 L 06/08/16 11:13 06/08/16 11:13 06/08/16 11:13 06/08/16 11:13 06/08/16 11:13 General appearance: Present: cooperative, A&O X 3, pleasant, no acute distress, answers questions appropriately - Head Head exam: Present: atraumatic, normocephalic - Eye Eye exam: Present: PERRL, conjuntiva pink, sclera anicteric Pupils: Present: PERRL - Neck Neck exam general surgery: Present: supple, trachea midline. Absent: lymphadenopathy - Respiratory Respiratory exam: Present: CTAB. Absent: accessory muscle use, rales, rhonchi, wheezes - Cardiovascular Cardiovascular exam: Present: RRR, +S1, +S2. Absent: diastolic murmur, gallop, rubs, systolic murmur - GI/Abdominal GI/Abdominal exam: Present: normal bowel sounds, soft, no peritoneal signs. Absent: distended, firm, guarding, tenderness Additional comments: Patient has incision RUQ from cholecystectomy. Dressing is clean and dry. There is no sign of infection. There is a drain in place with a small amount of blood. - Extremities Exam Extremities exam: Present: warm, radial pulses palpable and symetrical. Absent : calf tenderness, cyanotic, pedal edema - Back Exam Back exam: Present: normal inspection - Neurological Exam Neurological exam: Present: CN II-XII intact, oriented X3, no focal deficits. Absent: pronater drift, facial droop, speech deficit - Psychiatric Psychiatric exam: Present: normal affect, normal mood - Skin Skin exam: Present: dry, intact Internal Medicine: Result - Labs CBC & Chem 7: 06/08/16 03:54 06/08/16 03:54 Labs: Short CBC 06/08/16 Range/Units 03:54 WBC 16.9 H D (4.3-11.1) K/mcL Hgb 9.7 L (12.9-16.9) g/dL Hct 30.5 L (37.5-50.1) % Plt Count 452 H (140-400) K/mcL Neutrophils # 13.7 H (1.6-8.9) K/mcL BMP 06/08/16 03:54 Sodium 139 Potassium 4.6 H Chloride 109 Carbon Dioxide 16 L BUN 23 Creatinine 0.96 Glucose 96 Calcium 8.5 L Liver Function 06/08/16 Range/Units 03:54 Total Bilirubin 1.5 H D (0.2-1.2) mg/dL AST 81 H (5-34) Units/L ALT 191 H (0-55) Units/L Alkaline Phosphatase 285 H (38-126) Units/L Albumin 2.6 L (3.5-5.0) g/dL - ABG Interpretation ABG results: PT/INR, D-dimer PT 16.8 Seconds (9.4-12.1) H 06/07/16 04:17 - Impressions Impressions Abdomen MRI 06/06/16 09:18 IMPRESSION: 1. Cholelithiasis and suspected tumefactive biliary sludge with findings suggestive of cholecystitis. 2. No definite findings of choledocholithiasis or biliary obstruction. However, there is focal narrowing of the common hepatic duct just proximal to the confluence with the cystic duct. Additionally, there may be edematous wall thickening of the extrahepatic ducts in addition to mild periportal edema. These findings could be related to cholangitis or cholangiocarcinoma. Consider further characterization with ERCP or liver protocol MRI. 3. No definite findings of pancreatitis or duodenitis on this examination. 4. Increased trace bilateral effusions and trace ascites, likely reactive. D/ / Neto aCbrera MD / Neto Cabrera MD Interpreting Provider: Neto Cabrera MD Abdomen Ultrasound 06/06/16 14:30 IMPRESSION: As was seen at CT, Gallbladder wall is thickened and there is stones and sludge within the gallbladder lumen. Cholecystitis not excluded based on these findings although the common bile duct is appropriate for age. Incidental right pleural effusion. D/ / Lincoln Foreman MD / Lincoln Foreman MD Interpreting Provider: Lincoln Foreman MD - VTE Documentation of Mechanical Device: Intermittent pneumatic compression device Consult Discharge Plan - Plan Referrals: Ines Turner, COMMUNITY OUTREACH COORDINATOR [Primary Care Provider] - <Lexis Guan E - Last Filed: 06/08/16 19:22> - Constitutional Vitals: Temp Pulse Resp BP Pulse Ox 98.1 F 68 18 115/58 95 06/08/16 14:50 06/08/16 14:50 06/08/16 14:50 06/08/16 14:50 06/08/16 14:50 Internal Medicine: Result - Labs CBC & Chem 7: 06/08/16 03:54 06/08/16 03:54 Labs: Short CBC 06/08/16 Range/Units 03:54 WBC 16.9 H D (4.3-11.1) K/mcL Hgb 9.7 L (12.9-16.9) g/dL Hct 30.5 L (37.5-50.1) % Plt Count 452 H (140-400) K/mcL Neutrophils # 13.7 H (1.6-8.9) K/mcL BMP 06/08/16 03:54 Sodium 139 Potassium 4.6 H Chloride 109 Carbon Dioxide 16 L BUN 23 Creatinine 0.96 Glucose 96 Calcium 8.5 L Liver Function 06/08/16 Range/Units 03:54 Total Bilirubin 1.5 H D (0.2-1.2) mg/dL AST 81 H (5-34) Units/L ALT 191 H (0-55) Units/L Alkaline Phosphatase 285 H (38-126) Units/L Albumin 2.6 L (3.5-5.0) g/dL - ABG Interpretation ABG results: PT/INR, D-dimer PT 16.8 Seconds (9.4-12.1) H 06/07/16 04:17 - Attending Attestation I examined this patient and reviewed laboratory, imaging and all diagnostic data. My medical decision-making was reviewed with Mandy Ortiz - Resident Physician. I agree with the documented findings, disposition and treatment plan as described above.
[2016-06-08] MEDS ORDERED: Temazepam 15 MG CAPSULE PO PRN (15:28)
[2016-06-08] MEDS ORDERED: Melatonin 3 MG TABLET PO SCH (21:00)
[2016-06-09 04:05] LABS: Basophils % 0.1 %; Eosinophils % 0.1 %; Hematocrit 27.4 % (37.5-50.1); Hemoglobin 8.9 g/dL (12.9-16.9); Immature Granulocytes % 0.3 % (0-4); Lymphocytes # 4.1 K/mcL (0.6-4.6); Lymphocytes % 27.9 %; Mean Corpuscular HGB Conc 32.5 g/dL (31.6-35.5); Mean Corpuscular Hemoglobin 30.4 pg (28.0-33.3); Mean Corpuscular Volume 93.5 fL (83.0-100.0); Monocytes # 0.9 K/mcL (0.0-1.3); Monocytes % 6.1 %; Neutrophils # 9.5 K/mcL (1.6-8.9); Platelet Count 382 K/mcL (140-400); Red Blood Count 2.93 M/mcL (4.19-5.50); Red Cell Distribution Width 12.7 % (11.5-14.5); Segmented Neutrophils % 65.5 %
[2016-06-09 04:22] LABS: Alanine Aminotransferase 150 Units/L (0-55); Albumin 2.4 g/dL (3.5-5.0); Albumin/Globulin Ratio 0.7 (1.1-2.2); Alkaline Phosphatase 198 Units/L (38-126); Aspartate Amino Transferase 71 Units/L (5-34); BUN/Creatinine Ratio 22 (6-26); Bilirubin,Indirect 0.4 mg/dL (0.0-1.2); Bilirubin,Total 1.1 mg/dL (0.2-1.2); Blood Urea Nitrogen 22 mg/dL (8-26); Calcium 8.2 mg/dL (8.6-10.8); Carbon Dioxide 21 mEq/L (19-29); Chloride 106 mEq/L (98-109); Globulin 3.4 g/dL (2.4-3.5); Glucose 114 mg/dL (70-99); Osmolality,Calculated 282 (280-300); Potassium 3.9 mEq/L (3.5-4.5); Sodium 134 mEq/L (136-145); Total Protein 5.8 g/dL (6.0-8.3); eGFR For African Americans > 60 (> 60); eGFR For Non-African Americans > 60 (> 60)
[2016-06-09 04:27] LABS: Bilirubin,Direct 0.7 mg/dL (0.0-0.5)
[2016-06-09] MEDS ORDERED: Aspirin 81 MG TAB.CHEW PO SCH (09:00)
[2016-06-09] MEDS: amLODIPine 5 MG TABLET PO SCH (09:05)
--- NOTE | 2016-06-09 10:39 | Discharge Summary ---
Date of Encounter: 06/09/16 Time of Encounter: 10:30 - Discharge Diagnosis (1) Sepsis Priority: Primary Status: Acute Qualifiers: Sepsis type: sepsis due to unspecified organism Qualified Code(s): A41.9 - Sepsis, unspecified organism (2) Gallstone pancreatitis Priority: Primary Status: Acute (3) Cholecystitis Priority: Primary Status: Resolved (4) Duodenitis Priority: Primary Status: Acute (5) BPH (benign prostatic hyperplasia) Priority: Secondary Status: Chronic Qualifiers: Prostatic enlargement morphology: unspecified morphology Lower urinary tract symptom presence: presence of symptoms unspecified Qualified Code(s): N40.0 - Benign prostatic hyperplasia without lower urinary tract symptoms (6) Hypothyroidism Priority: Secondary Status: Chronic Qualifiers: Hypothyroidism type: acquired Qualified Code(s): E03.9 - Hypothyroidism, unspecified - Discharge Medications Prescriptions: HYDROcodone/Acet 5/325 mg [Powersite 5-325 mg] 1 tab PO Q6HR PRN #15 tablet PRN Reason: Moderate Pain Home Medications: Amlodipine Besylate 2.5 mg PO DAILY #0 08/25/15 [History] Levothyroxine [Synthroid] 150 mcg PO QAM 08/25/15 [History] Tamsulosin [Flomax] 0.4 mg PO DAILY 08/25/15 [History] Aspirin 81 mg PO DAILY tab.chew 08/26/15 [Rx] Melatonin 6 mg PO HS 06/05/16 [History] Temazepam [Restoril] 22.5 mg PO HS PRN 06/05/16 [History] Enalapril Maleate [Vasotec] 20 mg PO DAILY #0 06/09/16 [Rx] HYDROcodone/Acet 5/325 mg [Powersite 5-325 mg] 1 tab PO Q6HR PRN #15 tablet [Rx] Omeprazole 20 mg PO DAILY #30 tablet.dr 06/09/16 [Rx] Allergies/Adverse Reactions: Allergies No Known Allergies Allergy (Verified 05/22/16 13:41) Procedures/tests Complete & Pending: Procedures Performed prior 72 hours Category Date Time Status US abdomen limited [US] Routine Exams 06/06/16 14:30 Completed Date of admission: 06/06/16 00:20 Primary care physician: Ines Turner CNP Consults: 06/06/16 10:37 Consult to Surgery [CONS] Routine Consulting Provider: [facility] Reason for Consult: Cholecystitis. Appreciate evaluation for possible cholecystectomy Call Completed: Yes 06/06/16 15:58 Consult to Gastroenterology [CONS] Routine Consulting Provider: Carissa Worthy Reason for Consult: ERCP Call Completed: Yes - Patient Status Disposition: Home, Self-Care Condition: Serious Functional capacity at discharge: independent ambulation Overall status at discharge: patient is progressing back to baseline - Discharge Instructions Follow Up With: Ines Turner, BOTTLE WASHER MACHINE [Primary Care Provider] - (f/u with dr bourne in 1-2 weeks. f /u with PCP in 1 week. f/u in surgery clinic in 2-3 weeks) Additional Instructions: follow up in Dr Bourne office in 1 week. check your Blood pressure daily, make a log and bring numbers to doctors appointment. - Diet and Activity Activity: resume usual activities as tolerated Diet: low fat, low cholesterol Interval History: Patient has minimal abdominal pain right upper quadrant. He is tolerating diet well. He is eager to go home. Hospital course: Mr. Rainey is a 89 year old male with past medical history for hypertension and BPH. He presented with RUQ abdominal pain, fever, chills, nausea, vomiting. CT abdomen/pelvis with gallbladder thickening, wall calcification, mild fat induration suggestive of acute vs. chronic cholecystitis. There was moderate intrahepatic and mild extrahepatic biliary dilatation. MRCP showed cholelithiasis and possible tumefactive biliary sludge, focal narrowing of the common hepatic duct proximal to the confluence with the cystic duct with edematous wall thickening of the extrahepatic ducts suggestive of cholangitis vs cholangiocarcinoma. He was started on IV Zosyn, IV fluids, and IV PPI. Patient underwent cholecystectomy with cholangiogram intraoperatively. His abdominal pain and nausea resolved and he was tolerating diet well at discharge. It appeared that the intraoperative cholangiogram was abnormal but not infected. There is concern of possible malignancy and patient will follow up with Dr. Bourne for further outpatient work-up. I personally explained the intraoperative findings to the family, they verbalized understanding and agreed with the plan. They will follow up with Dr. Bourne in the office. Lisinopril was decreased given good control of blood pressure only with amlodipine while inpatient. PLAN: Follow-up with PCP next week: HTN, repeat CBC and LFT. f/u in Dr gul's office. low fat diet. omeprazole daily. Patient was instructed to check blood pressure daily. - Time Spent with Patient Total time spent providing and/or coordinating discharge services: - Constitutional Vitals: Temp Pulse Resp BP Pulse Ox 98.2 F 82 14 139/66 94 L 06/09/16 08:00 06/09/16 08:00 06/09/16 08:00 06/09/16 08:00 06/09/16 08:00 General appearance: Present: cooperative, A&O X 3, pleasant, no acute distress, answers questions appropriately - VTE Documentation of Mechanical Device: Intermittent pneumatic compression device
--- NOTE | 2016-06-09 10:47 | General Surgery Progress Note ---
Date of Encounter: 06/09/16 Time of Encounter: 10:45 - Assessment and Plan (1) Cholecystitis Status: Resolved POD #[address] Perry Pathology pending Discussed need for ERCP and EUS with Dr. Bonilla- he will see the patient as an outpatient Supportive care/pain control Advance to full liquids Decrease IV fluids to 60ml/hour Repeat labs Increase activity as tolerated- out of bed to chair and ambulate with assistance IS every 1 hour while awake resume home medication regimen 06/09/16: Patient progressing well. Tolerating feeds without problem. WBC trending down toward normal. VINCENT drain in place with serosanguienous drainage. Ok to be discharged from surgical standpoint w/ VINCENT drain. Instructed pt. to empty VINCENT drain and keep log of how much output there is and bring log to f/u appointment. (2) Cholelithiasis Status: Resolved POD #[address] Perry Pathology pending Discussed need for ERCP and EUS with Dr. Bonilla- he will see the patient as an outpatient Supportive care/pain control Advance to full liquids Decrease IV fluids to 60ml/hour Repeat labs Increase activity as tolerated- out of bed to chair and ambulate with assistance IS every 1 hour while awake resume home medication regimen Qualifiers: Cholelithiasis location: gallbladder Cholecystitis presence: with cholecystitis Cholecystitis acuity: unspecified acuity Biliary obstruction: with biliary obstruction Qualified Code(s): K80.01 - Calculus of gallbladder with acute cholecystitis with obstruction Subjective Patient reports: feels better, flatus, afebrile Narrative: Patient seen and examined. He is feeling good today. Tolerating diet well. No concerns/complaints. Objective Vital Signs - Last 8 Hours Temp Pulse Resp BP Pulse Ox 06/09/16 08:00 98.2 F 82 14 139/66 94 L 06/09/16 03:47 98.1 F 89 14 145/54 93 L Intake and Output 06/08/16 06/09/16 06/09/16 23:59 07:59 15:59 Intake Total 240 / 240 480 / 480 Output Total 340 / 340 265 / 265 240 / 240 Balance -100 / -100 -265 / -265 240 / 240 Intake: Oral 240 / 240 480 / 480 Output: Urine 300 / 300 225 / 225 200 / 200 Wound Drainage 40 / 40 40 / 40 40 / 40 Right Abdomen 40 / 40 40 / 40 40 / 40 Other: Meal Dinner Breakfast Percent of Meal Consumed 100% 50% Weight 83.9 kg Patient Weight 06/09/16 23:59 Weight 83.9 kg - General physical appearance well developed, well nourished, no distress - Eyes normal ocular movement - Neck Neck exam: trachea midline - Respiratory normal expansion, clear to auscultation - Cardiovascular Cardiovascular exam: Present: RRR - Abdomen Abdomen: Present: bowel sounds present, soft Additional Comments: VINCENT drain in right abdomen with serosangeuinous fluid - Incision Incision: Present: clean and dry, intact - Labs 06/09/16 03:52 06/09/16 03:52 Diabetes panel 06/09/16 Range/Units 03:52 Sodium 134 L (136-145) mEq/L Potassium 3.9 (3.5-4.5) mEq/L Chloride 106 (98-109) mEq/L Carbon Dioxide 21 (19-29) mEq/L BUN 22 (8-26) mg/dL Creatinine 1.00 (0.72-1.25) mg/dL Glucose 114 H (70-99) mg/dL Calcium 8.2 L (8.6-10.8) mg/dL AST 71 H (5-34) Units/L ALT 150 H (0-55) Units/L Alkaline Phosphatase 198 H (38-126) Units/L Albumin 2.4 L (3.5-5.0) g/dL Calcium panel 06/09/16 Range/Units 03:52 Calcium 8.2 L (8.6-10.8) mg/dL Albumin 2.4 L (3.5-5.0) g/dL Pituitary panel 06/09/16 Range/Units 03:52 Sodium 134 L (136-145) mEq/L Potassium 3.9 (3.5-4.5) mEq/L Chloride 106 (98-109) mEq/L Carbon Dioxide 21 (19-29) mEq/L BUN 22 (8-26) mg/dL Creatinine 1.00 (0.72-1.25) mg/dL Glucose 114 H (70-99) mg/dL Calcium 8.2 L (8.6-10.8) mg/dL Adrenal panel 06/09/16 Range/Units 03:52 Sodium 134 L (136-145) mEq/L Potassium 3.9 (3.5-4.5) mEq/L Chloride 106 (98-109) mEq/L Carbon Dioxide 21 (19-29) mEq/L BUN 22 (8-26) mg/dL Creatinine 1.00 (0.72-1.25) mg/dL Glucose 114 H (70-99) mg/dL Calcium 8.2 L (8.6-10.8) mg/dL Total Bilirubin 1.1 (0.2-1.2) mg/dL AST 71 H (5-34) Units/L ALT 150 H (0-55) Units/L Alkaline Phosphatase 198 H (38-126) Units/L Albumin 2.4 L (3.5-5.0) g/dL - VTE Documentation of Mechanical Device: Intermittent pneumatic compression device Consult Discharge Plan - Plan Additional Instructions: follow up in Dr Bonilla office in 1 week. check your Blood pressure daily, make a log and bring numbers to doctors appointment. Referrals: Ines Turner, DIMPLING MACHINE OPERATOR [Primary Care Provider] - (f/u with dr bonilla in 1-2 weeks. f /u with PCP in 1 week. f/u in surgery clinic in 2-3 weeks) Prescriptions: HYDROcodone/Acet 5/325 mg [Aurora 5-325 mg] 1 tab PO Q6HR PRN #15 tablet PRN Reason: Moderate Pain Omeprazole 20 mg PO DAILY #30 tablet. - Attending Attestation I examined this patient and my medical decision-making was reviewed with the CONSULTANT INTERN/PA/Advanced Practice Nurse/Resident Physician. I agree with the documented findings, disposition and treatment plan as described except to the extent set forth below. I reviewed the assessment and plan as mentioned above. Interim present during the evaluation. Incisions clean, dry, and intact. No abdominal pain on exam. The patient is to follow-up with Dr. Bonilla upon discharge and from our standpoint the patient is okay to be discharged home with follow-up with Dr. Perry in approximately 1-2 weeks.
[2016-06-09 13:14] VITALS: BP 150/77
== END 2016-06-09 14:22 | disposition home or self-care (01) | DRG 853 ==
LOC: EMEROO 14:19 → 3ANU 14:19
PROVIDERS: ADMIT Internal Medicine; ATTEND Internal Medicine